=== PATIENT | female | born 1990 | race African-American/Black ===

== ENCOUNTER 2016-04-21 05:16 | Emergency (ER) | payer OTHER ==
[2016-04-21] MEDS ORDERED: METOCLOPRAMIDE INJ 10MG/2ML VIAL (J2765) As Ordered ONE (05:42)
[2016-04-21 05:53] LABS: BASO % 0.2 % (0.0-1.0); EOS # 0.1 K/mm3 (0.0-0.50); LARGE UNSTAINED CELL # 0.1 K/mm3 (0.0-0.4); LARGE UNSTAINED CELL % 1.3 % (0.0-4.0); LYMPH # 0.9 K/mm3 (1.5-6.5); LYMPH % 10.9 % (24.0-44.0); MEAN CORPUSCULAR HEMOGLOBIN 28.6 pg (27.0-33.0); MEAN CORPUSCULAR HGB CONC 33.9 g/dl (32.0-36.5); MEAN CORPUSCULAR VOLUME 84.5 fl (80.0-96.0); MONO # 0.4 K/mm3 (0.0-0.8); NEUTROPHILS # 6.7 K/mm3 (1.8-7.7); NEUTROPHILS % 81.6 % (36.0-66.0); PLATELET COUNT, AUTOMATED 246 k/mm3 (150-450); WHITE BLOOD COUNT 8.2 K/mm3 (4.0-10.0)
[2016-04-21 06:04] LABS: ALBUMIN 3.7 GM/DL (3.2-5.2); ALBUMIN/GLOBULIN RATIO 0.86 (1.00-1.93); ALKALINE PHOSPHATASE 49 U/L (45-117); ALT/SGPT 17 U/L (12-78); ANION GAP 10 MEQ/L (8-16); AST/SGOT 12 U/L (15-37); BILIRUBIN,DIRECT 0.1 MG/DL (0.0-0.2); BILIRUBIN,TOTAL 0.4 MG/DL (0.2-1.0); BLOOD UREA NITROGEN 6 MG/DL (7-18); CALCIUM LEVEL 9.1 MG/DL (8.5-10.1); CARBON DIOXIDE LEVEL 24 MEQ/L (21-32); CHLORIDE LEVEL 105 MEQ/L (98-107); CREATININE FOR GFR 0.78 MG/DL (0.55-1.02); GLOMERULAR FILTRATION RATE > 60.0 (>60); GLUCOSE, FASTING 74 MG/DL (70-105); POTASSIUM SERUM 3.6 MEQ/L (3.5-5.1); SODIUM LEVEL 139 MEQ/L (136-145)
[2016-04-21] MEDS ORDERED: ceFAZolin 1GM INJ (J0690) As Ordered ONE (06:14)
--- NOTE | 2016-04-21 08:23 | EDDOCDS ---
Nurse's Notes [facility] Name: Mariposa Browne Age: 25 yrs Sex: Female : 1990 Arrival Date: 04/21/2016 Time: 05:16 Bed 14 Private MD: Diagnosis: Mild hyperemesis gravidarum;Urinary tract infection, site not specified Presentation: 04/21 05:21 Presenting complaint: Patient states: nausea, vomiting x a couple days-- reports af2 feeling dizzy, lightheaded today, and intolerance of food and fluids. abdominal pain to LLQ. Adult Sepsis Screening: The patient does not have new or worsening altered mentation. Patient's respiratory rate is less than 22. Systolic blood pressure is greater than 100. Patient has a qSOFA score of 0- Negative Sepsis Screen. Suicide/Homicide risk assessment- the patient denies having any suicidal and/or homicidal ideations and does not present with any other emotional, behavioral or mental health complaints. Status: The patient is a dependent. Transition of care: patient was not received from another setting of care. 05:21 Acuity: STEVEN Level 3 af2 05:21 Method Of Arrival: Walkin/Carried/Asstd af2 Triage Assessment: 05:24 General: Appears in no apparent distress, Behavior is cooperative. Pain: Location: af2 abdomen Pain currently is 2 out of 10 on a pain scale. Pt Declines HIV testing. GI: Reports lower abdominal pain, nausea, vomiting, intolerance of food, intolerance of fluids. Derm: Skin is normal. 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 Tylenol 325 mg Oral tab 1 tab every 4-6 hours 2. Zantac 150 mg Oral cap Unknown once daily 3. Vitamin 27-0.8 mg Oral tab 1 tab once daily - PMHx: none; - PSHx: Cholecystectomy; - Social history: Smoking status: Patient states was never smoker of tobacco. No barriers to communication noted, The patient speaks fluent Yi. - Family history: Not pertinent. - : The pt / caregiver states he / she is not on anticoagulants. Home medication list is obtained from the patient. - Exposure Risk Screening:: None identified. Screenin:25 Screening information is obtained from the patient. Fall risk: No risks identified. af2 Assistance ADL's: requires no assistance with activities of daily living. Abuse/DV Screen: The patient / caregiver reports he/she is: not in a situation that causes fear, pain or injury. Nutritional screening: No deficits noted. Advance Directives: There is no active DNR order. home support is adequate. Assessment: 05:51 General: Appears in no apparent distress, Behavior is appropriate for age, cooperative. tm5 Pain: Location: right lower quadrant and left lower quadrant Pain currently is 2 out of 10 on a pain scale. Quality of pain is described as burning, crampy. Neurological: Level of Consciousness is awake, alert, Oriented to person, place, time. Respiratory: Airway is patent Respiratory effort is even, unlabored, Respiratory pattern is regular, symmetrical. GI: Abdomen is distended, pt is 4 months Bowel sounds present X 4 quads. Abd is soft and non tender X 4 quads. Reports nausea, vomiting, intolerance of food, intolerance of fluids. : No deficits noted. Derm: Skin is pink, warm & dry. normal. 06:25 Reassessment: Patient appears in no apparent distress at this time. Patient states tm5 feeling better. Patient states symptoms have improved. pt states that her nausea is better at this time, provided saltine crackers & ice water to pt per MD's okay. 07:06 General: Appears in no apparent distress, Behavior is appropriate for age, cooperative. pml Neurological: Level of Consciousness is awake, alert, Oriented to person, place, time. Cardiovascular: Capillary refill < 3 seconds. Respiratory: Airway is patent Respiratory effort is even, unlabored, Respiratory pattern is regular, symmetrical. Derm: Skin is pink, warm & dry. 08:18 General: Appears in no apparent distress, Behavior is appropriate for age, cooperative. pml Pain: Location: abdomen Pain currently is 2 out of 10 on a pain scale. Neurological: Level of Consciousness is awake, alert, Oriented to person, place, time. Cardiovascular: Capillary refill < 3 seconds. Respiratory: Airway is patent Respiratory effort is even, unlabored, Respiratory pattern is regular, symmetrical. GI: Abdomen is distended. Derm: Skin is pink, warm & dry. Vital Signs: 05:20 BP 138 / 75 RA Sitting; Pulse 103; Resp 18 S; Temp 98.3(O); Pulse Ox 100% on R/A; af2 Weight 92.53 kg (R); Height 5 ft. 5 in. (165.10 cm) (R); Pain 2/10; 06:26 BP 132 / 68; Pulse 77; Resp 18; Pulse Ox 99% on R/A; Pain 0/10; tm5 08:18 BP 111 / 67; Pulse 91; Resp 18; Temp 97.2; Pulse Ox 100% ; Pain 2/10; pml 05:20 Body Mass Index 33.95 (92.53 kg, 165.10 cm) af2 Vitals: 05:20 Log In Time: April 21, 2016 at 05:14. af2 ED Course: 05:17 Patient visited by Kailey Martinez. gjb 05:17 Patient moved to Waiting gjb 05:23 Triage Initiated af2 05:25 Patient moved to 14 af2 05:30 Jimbo Fragoso DO is Attending Physician. cs11 05:30 Patient visited by Jimbo Fragoso DO. cs11 05:40 Awaiting ED physician evaluation. tm5 05:40 Inserted saline lock: 20 gauge in right antecubital area and blood collected. The tm5 patient tolerated the procedure well. Labs drawn. (by ED staff). 05:41 Patient visited by Nubia Cotton RN. tm5 05:41 Liver Profile Sent. tm5 05:42 MED Profile Sent. tm5 05:42 CBC with Diff Sent. tm5 05:51 The patient / caregiver is instructed regarding the plan of care and ED course. tm5 06:24 Benitez Duke, OB is Referral Physician. cs11 06:58 Report given to Diamond Hester RN. tm5 07:08 Patient visited by Diamond Sharpe RN. pml 07:28 [facility] Payment Agreement was scanned into [employer] and attached to record. hs2 07:29 Patient name changed from Octiva\S\\S\Tarah Browne\S\ to [employer]\S\ \S\Tarah Browne. EDMS 08:18 Patient has correct armband on for positive identification. Placed in gown. Bed in low pml position. Call light in reach. Side rails up X2. 08:18 No procedures done that require assistance. pml Administered Medications: 05:50 Drug: NS 0.9% 2000 ml [sodium chloride 0.9 % intravenous solution] Route: IV; Rate: tm5 bolus; Site: right antecubital; 08:21 Follow up: IV Status: Completed infusion; IV Intake: 1000ml pml 05:51 Drug: Metoclopramide 10 mg [metoclopramide 5 mg/mL injection solution] {Note: given via tm5 syringe pump over 30 mins.} Route: IV; Rate: 40 mg/hr; Infused Over: 15 mins; Site: right antecubital; 06:24 Follow up: Response: Nausea is resolved; No Adverse Reaction; IV Status: Completed tm5 infusion 06:24 Drug: ceFAZolin 1 grams [cefazolin 1 gram solution for injection] Route: IVPB; Infused tm5 Over: 30 mins; Site: right antecubital; 08:21 Follow up: IV Status: Completed infusion pml Intake: 08:21 IV: 1000.00ml; Total: 1000.00ml. pml Order Results: Lab Order: CBC with Diff; SPEC'M 04/21/16 05:41 Test: WHITE BLOOD COUNT; Value: 8.2; Range: 4.0-10.0; Units: K/mm3; Status: F Test: RED BLOOD COUNT; Value: 4.28; Range: 4.00-5.40; Units: M/mm3; Status: F Test: HEMOGLOBIN; Value: 12.2; Range: 12.0-16.0; Units: g/dl; Status: F Test: HEMATOCRIT; Value: 36.1; Range: 36.0-47.0; Units: %; Status: F Test: MEAN CORPUSCULAR VOLUME; Value: 84.5; Range: 80.0-96.0; Units: fl; Status: F Test: MEAN CORPUSCULAR HEMOGLOBIN; Value: 28.6; Range: 27.0-33.0; Units: pg; Status: F Test: MEAN CORPUSCULAR HGB CONC; Value: 33.9; Range: 32.0-36.5; Units: g/dl; Status: F Test: RED CELL DISTRIBUTION WIDTH; Value: 13.0; Range: 11.5-14.5; Units: %; Status: F Test: PLATELET COUNT, AUTOMATED; Value: 246; Range: 150-450; Units: k/mm3; Status: F Test: NEUTROPHILS %; Value: 81.6; Range: 36.0-66.0; Abnormal: Above high normal; Units: %; Status: F Test: LYMPH %; Value: 10.9; Range: 24.0-44.0; Abnormal: Below low normal; Units: %; Status: F Test: MONO %; Value: 5.0; Range: 0.0-5.0; Units: %; Status: F Test: EOS %; Value: 1.0; Range: 0.0-3.0; Units: %; Status: F Test: BASO %; Value: 0.2; Range: 0.0-1.0; Units: %; Status: F Test: LARGE UNSTAINED CELL %; Value: 1.3; Range: 0.0-4.0; Units: %; Status: F Test: NEUTROPHILS #; Value: 6.7; Range: 1.8-7.7; Units: K/mm3; Status: F Test: LYMPH #; Value: 0.9; Range: 1.5-6.5; Abnormal: Below low normal; Units: K/mm3; Status: F Test: MONO #; Value: 0.4; Range: 0.0-0.8; Units: K/mm3; Status: F Test: EOS #; Value: 0.1; Range: 0.0-0.50; Units: K/mm3; Status: F Test: BASO #; Value: 0.0; Range: 0.0-0.2; Units: K/mm3; Status: F Test: LARGE UNSTAINED CELL #; Value: 0.1; Range: 0.0-0.4; Units: K/mm3; Status: F Lab Order: MED Profile; SPEC'M 04/21/16 05:40 Test: GLUCOSE, FASTING; Value: 74; Range: 70-105; Units: MG/DL; Status: F Test: BLOOD UREA NITROGEN; Value: 6; Range: 7-18; Abnormal: Below low normal; Units: MG/DL; Status: F Test: CREATININE FOR GFR; Value: 0.78; Range: 0.55-1.02; Units: MG/DL; Status: F Test: GLOMERULAR FILTRATION RATE; Value: > 60.0; Range: >60; Status: F Test: SODIUM LEVEL; Value: 139; Range: 136-145; Units: MEQ/L; Status: F Test: POTASSIUM SERUM; Value: 3.6; Range: 3.5-5.1; Units: MEQ/L; Status: F Test: CHLORIDE LEVEL; Value: 105; Range: 98-107; Units: MEQ/L; Status: F Test: CARBON DIOXIDE LEVEL; Value: 24; Range: 21-32; Units: MEQ/L; Status: F Test: ANION GAP; Value: 10; Range: 8-16; Units: MEQ/L; Status: F Test: CALCIUM LEVEL; Value: 9.1; Range: 8.5-10.1; Units: MG/DL; Status: F Test Note: ; Units are mL/min/1.73 m2 Chronic Kidney Disease Staging per NKF: Stage I & II GFR >=60 Normal to Mildly Decreased Stage III GFR 30-59 Moderately Decreased Stage IV GFR 15-29 Severely Decreased Stage V GFR <15 Very Little GFR Left ESRD GFR <15 on 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 Lab Order: Liver Profile; SPEC'M 04/21/16 05:40 Test: AST/SGOT; Value: 12; Range: 15-37; Abnormal: Below low normal; Units: U/L; Status: F Test: ALT/SGPT; Value: 17; Range: 12-78; Units: U/L; Status: F Test: ALKALINE PHOSPHATASE; Value: 49; Range: 45-117; Units: U/L; Status: F Test: BILIRUBIN,TOTAL; Value: 0.4; Range: 0.2-1.0; Units: MG/DL; Status: F Test: BILIRUBIN,DIRECT; Value: 0.1; Range: 0.0-0.2; Units: MG/DL; Status: F Test: TOTAL PROTEIN; Value: 8.0; Range: 6.4-8.2; Units: GM/DL; Status: F Test: ALBUMIN; Value: 3.7; Range: 3.2-5.2; Units: GM/DL; Status: F Test: ALBUMIN/GLOBULIN RATIO; Value: 0.86; Range: 1.00-1.93; Abnormal: Below low normal; Status: F Lab Order: Urinalysis; SPEC'M 04/21/16 05:30 Test: APPEARANCE, URINE; Value: CLOUDY; Range: CLEAR; Abnormal: Above high normal; Status: F Test: COLOR, URINE; Value: YELLOW; Range: YELLOW; Status: F Test: PH,URINE; Value: 5.0; Range: 5.0-9.0; Units: UNITS; Status: F Test: SPECIFIC GRAVITY URINE AUTO; Value: 1.018; Range: 1.002-1.035; Status: F Test: PROTEIN, URINE AUTO; Value: 2+; Range: NEGATIVE; Abnormal: Above high normal; Units: mg/dL; Status: F Test: GLUCOSE, URINE (UA) AUTO; Value: NEGATIVE; Range: NEGATIVE; Units: mg/dL; Status: F Test: KETONE, URINE AUTO; Value: 2+; Range: NEGATIVE; Abnormal: Above high normal; Units: mg/dL; Status: F Test: UROBILINOGEN, URINE AUTO; Value: 0.2; Range: 0.0-2.0; Units: mg/dL; Status: F Test: BILIRUBIN, URINE AUTO; Value: NEGATIVE; Range: NEGATIVE; Status: F Test: NITRITE, URINE AUTO; Value: NEGATIVE; Range: NEGATIVE; Status: F Test: LEUKOCYTE ESTERASE, URINE AUTO; Value: 3+; Range: NEGATIVE; Abnormal: Above high normal; Status: F Test: BLOOD, URINE BLOOD; Value: NEGATIVE; Range: NEGATIVE; Status: F Test: WBC, URINE AUTO; Value: 183; Range: 0-3; Units: /HPF; Status: F Test: RBC, URINE AUTO; Value: 9; Range: 0-3; Abnormal: Above high normal; Units: /HPF; Status: F Test: BACTERIA, URINE AUTO; Value: 1+; Range: NEGATIVE; Abnormal: Above high normal; Status: F Test: SQUAMOUS EPITHELIAL CELL UR AU; Value: 44; Range: 0-6; Units: /HPF; Status: F Test: MUCUS, URINE; Value: SMALL; Range: NEGATIVE; Status: F Test: HYALINE CAST, URINE AUTO; Value: 0; Range: 0-1; Units: /LPF; Status: F Outcome: 06:25 Discharge ordered by Provider. cs11 08:18 Discharge Assessment: Patient awake, alert and oriented x 3. No cognitive and/or pml functional deficits noted. Patient verbalized understanding of disposition instructions. patient administered narcotics - no. The following High Risk Discharge criteria are identified: None. Discharged to home ambulatory. Condition: good Condition: stable. Discharge instructions given to patient, Instructed on discharge instructions, follow up and referral plans. medication usage, Demonstrated understanding of instructions, medications, Pt was receptive of discharge instructions/ teaching. Prescriptions given X 2. No special radiology studies were completed. Property sent home with patient. 08:22 Patient left the ED. pml Signatures: Dispatcher [employer] EDDiamond BryanRN RN pml Jimbo Fragoso DO DO cs11 Gladis GarciaRN RN af2 Kailey [facility] Rachell Fuentes, Reg Reg hs2 Nubia Cotton RN RN tm5 MTDD
--- NOTE | 2016-04-21 08:23 | EDDOCDS ---
Physician Documentation [facility] Name: Mariposa Browne Age: 25 yrs Sex: Female : 1990 Arrival Date: 04/21/2016 Time: 05:16 Bed 14 Private MD: Disposition: 04/21/16 06:25 Discharged to Home/Self Care. Impression: Mild hyperemesis gravidarum, Urinary tract infection, site not specified. - Condition is Stable. - Prescriptions for Keflex 250 mg Oral Capsule - take 1 capsule by ORAL route every 8 hours for 10 days; 30 capsule. Reglan 10 mg Oral Tablet - take 1 tablet by ORAL route every 6 hours take 30 minutes before meals and at bedtime; 20 tablet. - Medication Reconciliation, Local Pharmacy Hours form. - Follow up: Benitez Duke OB; When: Call to arrange an appointment; Reason: Recheck today's complaints, Continuance of care. - Problem is an ongoing problem. - Symptoms have improved. Historical: - Allergies: No known drug Allergies; - Home Meds: 1. Tylenol 325 mg Oral tab 1 tab every 4-6 hours 2. Zantac 150 mg Oral cap Unknown once daily 3. Vitamin 27-0.8 mg Oral tab 1 tab once daily - PMHx: none; - PSHx: Cholecystectomy; - Social history: Smoking status: Patient states was never smoker of tobacco. No barriers to communication noted, The patient speaks fluent Malay. - Family history: Not pertinent. - : The pt / caregiver states he / she is not on anticoagulants. Home medication list is obtained from the patient. - Exposure Risk Screening:: None identified. 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 5 in. (165.10 cm) (R); Pain 2/10; 06:26 BP 132 / 68; Pulse 77; Resp 18; Pulse Ox 99% on R/A; Pain 0/10; tm5 08:18 BP 111 / 67; Pulse 91; Resp 18; Temp 97.2; Pulse Ox 100% ; Pain 2/10; pml 05:20 Body Mass Index 33.95 (92.53 kg, 165.10 cm) af2 MDM: 05:31 IV Saline Lock ordered. cs11 05:31 NS 0.9% 2000 ml IV at bolus once ordered. cs11 05:31 Metoclopramide 10 mg IV at 40 mg/hr once over 15 mins ordered. cs11 05:32 CBC with Diff Ordered. EDMS 05:32 MED Profile Ordered. EDMS 05:32 Liver Profile Ordered. EDMS 05:32 Urinalysis Ordered. EDMS 05:32 Urine Culture Ordered. EDMS 06:05 CBC with Diff Reviewed. cs11 06:05 Urinalysis Reviewed. cs11 06:07 ceFAZolin 1 grams IVPB once over 30 mins; dilute in 50mL of NS or D5W ordered. cs11 06:23 MED Profile Reviewed. cs11 06:23 Liver Profile Reviewed. cs11 07:23 Financial registration complete. hs2 07:28 [facility] Payment Agreement was scanned into [employer] and attached to record. hs2 Administered Medications: 05:50 Drug: NS 0.9% 2000 ml [sodium chloride 0.9 % intravenous solution] Route: IV; Rate: tm5 bolus; Site: right antecubital; 08:21 Follow up: IV Status: Completed infusion; IV Intake: 1000ml pml 05:51 Drug: Metoclopramide 10 mg [metoclopramide 5 mg/mL injection solution] {Note: given via tm5 syringe pump over 30 mins.} Route: IV; Rate: 40 mg/hr; Infused Over: 15 mins; Site: right antecubital; 06:24 Follow up: Response: Nausea is resolved; No Adverse Reaction; IV Status: Completed tm5 infusion 06:24 Drug: ceFAZolin 1 grams [cefazolin 1 gram solution for injection] Route: IVPB; Infused tm5 Over: 30 mins; Site: right antecubital; 08:21 Follow up: IV Status: Completed infusion pml Signatures: Dispatcher [employer] EDMS Diamond Sharpe RN RN pml Jimbo Fragoso DO DO cs11 Gladis Garcia RN RN af2 Rachell Fuentes, Reg Reg hs2 Nubia Cotton RN RN tm5 The chart was reviewed and I authenticate all verbal orders and agree with the evaluation and treatment provided.Attachments: 07:28 [facility] Payment Agreement hs2 MTDD
--- NOTE | 2016-04-23 09:23 | EDDOCDS ---
Physician Documentation [facility] Name: Mariposa Browne Age: 25 yrs Sex: Female : 1990 Arrival Date: 04/21/2016 Time: 05:16 Bed 14 Private MD: Disposition: 04/21/16 06:25 Discharged to Home/Self Care. Impression: Mild hyperemesis gravidarum, Urinary tract infection, site not specified. - Condition is Stable. - Prescriptions for Keflex 250 mg Oral Capsule - take 1 capsule by ORAL route every 8 hours for 10 days; 30 capsule. Reglan 10 mg Oral Tablet - take 1 tablet by ORAL route every 6 hours take 30 minutes before meals and at bedtime; 20 tablet. - Medication Reconciliation, Local Pharmacy Hours form. - Follow up: Benitez Duke OB; When: Call to arrange an appointment; Reason: Recheck today's complaints, Continuance of care. - Problem is an ongoing problem. - Symptoms have improved. Historical: - Allergies: No known drug Allergies; - Home Meds: 1. Tylenol 325 mg Oral tab 1 tab every 4-6 hours 2. Zantac 150 mg Oral cap Unknown once daily 3. Vitamin 27-0.8 mg Oral tab 1 tab once daily - PMHx: none; - PSHx: Cholecystectomy; - Social history: Smoking status: Patient states was never smoker of tobacco. No barriers to communication noted, The patient speaks fluent Malay. - Family history: Not pertinent. - : The pt / caregiver states he / she is not on anticoagulants. Home medication list is obtained from the patient. - Exposure Risk Screening:: None identified. 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 5 in. (165.10 cm) (R); Pain 2/10; 06:26 BP 132 / 68; Pulse 77; Resp 18; Pulse Ox 99% on R/A; Pain 0/10; tm5 08:18 BP 111 / 67; Pulse 91; Resp 18; Temp 97.2; Pulse Ox 100% ; Pain 2/10; pml 05:20 Body Mass Index 33.95 (92.53 kg, 165.10 cm) af2 MDM: 05:31 IV Saline Lock ordered. cs11 05:31 NS 0.9% 2000 ml IV at bolus once ordered. cs11 05:31 Metoclopramide 10 mg IV at 40 mg/hr once over 15 mins ordered. cs11 05:32 CBC with Diff Ordered. EDMS 05:32 MED Profile Ordered. EDMS 05:32 Liver Profile Ordered. EDMS 05:32 Urinalysis Ordered. EDMS 05:32 Urine Culture Ordered. EDMS 06:05 CBC with Diff Reviewed. cs11 06:05 Urinalysis Reviewed. cs11 06:07 ceFAZolin 1 grams IVPB once over 30 mins; dilute in 50mL of NS or D5W ordered. cs11 06:23 MED Profile Reviewed. cs11 06:23 Liver Profile Reviewed. cs11 07:23 Financial registration complete. hs2 07:28 [facility] Payment Agreement was scanned into [employer] and attached to record. hs2 08:55 T-Sheet-- Draft Copy was scanned into [employer] and attached to record. [facility] Administered Medications: 05:50 Drug: NS 0.9% 2000 ml [sodium chloride 0.9 % intravenous solution] Route: IV; Rate: tm5 bolus; Site: right antecubital; 08:21 Follow up: IV Status: Completed infusion; IV Intake: 1000ml pml 05:51 Drug: Metoclopramide 10 mg [metoclopramide 5 mg/mL injection solution] {Note: given via tm5 syringe pump over 30 mins.} Route: IV; Rate: 40 mg/hr; Infused Over: 15 mins; Site: right antecubital; 06:24 Follow up: Response: Nausea is resolved; No Adverse Reaction; IV Status: Completed tm5 infusion 06:24 Drug: ceFAZolin 1 grams [cefazolin 1 gram solution for injection] Route: IVPB; Infused tm5 Over: 30 mins; Site: right antecubital; 08:21 Follow up: IV Status: Completed infusion pml Signatures: Dispatcher [employer] EDMS Diamond Sharpe RN RN pml Jimbo Fragoso DO DO cs11 Gladis Garcia RN RN af2 Rachell Fuentes, Reg Reg hs2 Amita Hill Tonya,RN RN tm5 The chart was reviewed and I authenticate all verbal orders and agree with the evaluation and treatment provided.Attachments: 07:28 [facility] Payment Agreement hs2 08:55 T-Sheet-- Draft Copy mane Chart Complete MTDD
--- NOTE | 2016-04-23 09:23 | EDDOCDS ---
Physician Documentation [facility] Name: Mariposa Browne Age: 25 yrs Sex: Female : 1990 Arrival Date: 04/21/2016 Time: 05:16 Bed 14 Private MD: Disposition: 04/21/16 06:25 Discharged to Home/Self Care. Impression: Mild hyperemesis gravidarum, Urinary tract infection, site not specified. - Condition is Stable. - Prescriptions for Keflex 250 mg Oral Capsule - take 1 capsule by ORAL route every 8 hours for 10 days; 30 capsule. Reglan 10 mg Oral Tablet - take 1 tablet by ORAL route every 6 hours take 30 minutes before meals and at bedtime; 20 tablet. - Medication Reconciliation, Local Pharmacy Hours form. - Follow up: [facility]; When: Call to arrange an appointment; Reason: Recheck today's complaints, Continuance of care. - Problem is an ongoing problem. - Symptoms have improved. Historical: - Allergies: No known drug Allergies; - Home Meds: 1. Tylenol 325 mg Oral tab 1 tab every 4-6 hours 2. Zantac 150 mg Oral cap Unknown once daily 3. Vitamin 27-0.8 mg Oral tab 1 tab once daily - PMHx: none; - PSHx: Cholecystectomy; - Social history: Smoking status: Patient states was never smoker of tobacco. No barriers to communication noted, The patient speaks fluent Chinese. - Family history: Not pertinent. - : The pt / caregiver states he / she is not on anticoagulants. Home medication list is obtained from the patient. - Exposure Risk Screening:: None identified. 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 5 in. (165.10 cm) (R); Pain 2/10; 06:26 BP 132 / 68; Pulse 77; Resp 18; Pulse Ox 99% on R/A; Pain 0/10; tm5 08:18 BP 111 / 67; Pulse 91; Resp 18; Temp 97.2; Pulse Ox 100% ; Pain 2/10; pml 05:20 Body Mass Index 33.95 (92.53 kg, 165.10 cm) af2 MDM: 05:31 IV Saline Lock ordered. cs11 05:31 NS 0.9% 2000 ml IV at bolus once ordered. cs11 05:31 Metoclopramide 10 mg IV at 40 mg/hr once over 15 mins ordered. cs11 05:32 CBC with Diff Ordered. EDMS 05:32 MED Profile Ordered. EDMS 05:32 Liver Profile Ordered. EDMS 05:32 Urinalysis Ordered. EDMS 05:32 Urine Culture Ordered. EDMS 06:05 CBC with Diff Reviewed. cs11 06:05 Urinalysis Reviewed. cs11 06:07 ceFAZolin 1 grams IVPB once over 30 mins; dilute in 50mL of NS or D5W ordered. cs11 06:23 MED Profile Reviewed. cs11 06:23 Liver Profile Reviewed. cs11 07:23 Financial registration complete. hs2 07:28 [facility] Payment Agreement was scanned into VCV and attached to record. hs2 08:55 T-Sheet-- Draft Copy was scanned into VCV and attached to record. [facility] Administered Medications: 05:50 Drug: NS 0.9% 2000 ml [sodium chloride 0.9 % intravenous solution] Route: IV; Rate: tm5 bolus; Site: right antecubital; 08:21 Follow up: IV Status: Completed infusion; IV Intake: 1000ml pml 05:51 Drug: Metoclopramide 10 mg [metoclopramide 5 mg/mL injection solution] {Note: given via tm5 syringe pump over 30 mins.} Route: IV; Rate: 40 mg/hr; Infused Over: 15 mins; Site: right antecubital; 06:24 Follow up: Response: Nausea is resolved; No Adverse Reaction; IV Status: Completed tm5 infusion 06:24 Drug: ceFAZolin 1 grams [cefazolin 1 gram solution for injection] Route: IVPB; Infused tm5 Over: 30 mins; Site: right antecubital; 08:21 Follow up: IV Status: Completed infusion pml Signatures: Dispatcher MedHost EDMS Diamond Sharpe RN RN pml Jimbo Fragoso DO DO cs11 Gladis Garcia RN RN af2 Rachell Fuentes, Reg Reg hs2 Amita Hill Tonya,RN RN tm5 The chart was reviewed and I authenticate all verbal orders and agree with the evaluation and treatment provided.Attachments: 07:28 [facility] Payment Agreement hs2 08:55 T-Sheet-- Draft Copy mane Chart Complete MTDD
--- NOTE | 2016-04-23 09:23 | EDDOCDS ---
Nurse's Notes Name: Mariposa Browne Age: 25 yrs Sex: Female : 1990 Arrival Date: 04/21/2016 Time: 05:16 Bed 14 Private MD: Diagnosis: Mild hyperemesis gravidarum;Urinary tract infection, site not specified Presentation: 04/21 05:21 Presenting complaint: Patient states: nausea, vomiting x a couple days-- reports af2 feeling dizzy, lightheaded today, and intolerance of food and fluids. abdominal pain to LLQ. Adult Sepsis Screening: The patient does not have new or worsening altered mentation. Patient's respiratory rate is less than 22. Systolic blood pressure is greater than 100. Patient has a qSOFA score of 0- Negative Sepsis Screen. Suicide/Homicide risk assessment- the patient denies having any suicidal and/or homicidal ideations and does not present with any other emotional, behavioral or mental health complaints. Status: The patient is a dependent. Transition of care: patient was not received from another setting of care. 05:21 Acuity: STEVEN Level 3 af2 05:21 Method Of Arrival: Walkin/Carried/Asstd af2 Triage Assessment: 05:24 General: Appears in no apparent distress, Behavior is cooperative. Pain: Location: af2 abdomen Pain currently is 2 out of 10 on a pain scale. Pt Declines HIV testing. GI: Reports lower abdominal pain, nausea, vomiting, intolerance of food, intolerance of fluids. Derm: Skin is normal. 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 Tylenol 325 mg Oral tab 1 tab every 4-6 hours 2. Zantac 150 mg Oral cap Unknown once daily 3. Vitamin 27-0.8 mg Oral tab 1 tab once daily - PMHx: none; - PSHx: Cholecystectomy; - Social history: Smoking status: Patient states was never smoker of tobacco. No barriers to communication noted, The patient speaks fluent Wolof. - Family history: Not pertinent. - : The pt / caregiver states he / she is not on anticoagulants. Home medication list is obtained from the patient. - Exposure Risk Screening:: None identified. Screenin:25 Screening information is obtained from the patient. Fall risk: No risks identified. af2 Assistance ADL's: requires no assistance with activities of daily living. Abuse/DV Screen: The patient / caregiver reports he/she is: not in a situation that causes fear, pain or injury. Nutritional screening: No deficits noted. Advance Directives: There is no active DNR order. home support is adequate. Assessment: 05:51 General: Appears in no apparent distress, Behavior is appropriate for age, cooperative. tm5 Pain: Location: right lower quadrant and left lower quadrant Pain currently is 2 out of 10 on a pain scale. Quality of pain is described as burning, crampy. Neurological: Level of Consciousness is awake, alert, Oriented to person, place, time. Respiratory: Airway is patent Respiratory effort is even, unlabored, Respiratory pattern is regular, symmetrical. GI: Abdomen is distended, pt is 4 months Bowel sounds present X 4 quads. Abd is soft and non tender X 4 quads. Reports nausea, vomiting, intolerance of food, intolerance of fluids. : No deficits noted. Derm: Skin is pink, warm & dry. normal. 06:25 Reassessment: Patient appears in no apparent distress at this time. Patient states tm5 feeling better. Patient states symptoms have improved. pt states that her nausea is better at this time, provided saltine crackers & ice water to pt per MD's okay. 07:06 General: Appears in no apparent distress, Behavior is appropriate for age, cooperative. pml Neurological: Level of Consciousness is awake, alert, Oriented to person, place, time. Cardiovascular: Capillary refill < 3 seconds. Respiratory: Airway is patent Respiratory effort is even, unlabored, Respiratory pattern is regular, symmetrical. Derm: Skin is pink, warm & dry. 08:18 General: Appears in no apparent distress, Behavior is appropriate for age, cooperative. pml Pain: Location: abdomen Pain currently is 2 out of 10 on a pain scale. Neurological: Level of Consciousness is awake, alert, Oriented to person, place, time. Cardiovascular: Capillary refill < 3 seconds. Respiratory: Airway is patent Respiratory effort is even, unlabored, Respiratory pattern is regular, symmetrical. GI: Abdomen is distended. Derm: Skin is pink, warm & dry. Vital Signs: 05:20 BP 138 / 75 RA Sitting; Pulse 103; Resp 18 S; Temp 98.3(O); Pulse Ox 100% on R/A; af2 Weight 92.53 kg (R); Height 5 ft. 5 in. (165.10 cm) (R); Pain 2/10; 06:26 BP 132 / 68; Pulse 77; Resp 18; Pulse Ox 99% on R/A; Pain 0/10; tm5 08:18 BP 111 / 67; Pulse 91; Resp 18; Temp 97.2; Pulse Ox 100% ; Pain 2/10; pml 05:20 Body Mass Index 33.95 (92.53 kg, 165.10 cm) af2 Vitals: 05:20 Log In Time: April 21, 2016 at 05:14. af2 ED Course: 05:17 Patient visited by Kailey Martinez. gjb 05:17 Patient moved to Waiting gjb 05:23 Triage Initiated af2 05:25 Patient moved to 14 af2 05:30 Jimbo Fragoso DO is Attending Physician. cs11 05:30 Patient visited by Jimbo Fragoso DO. cs11 05:40 Awaiting ED physician evaluation. tm5 05:40 Inserted saline lock: 20 gauge in right antecubital area and blood collected. The tm5 patient tolerated the procedure well. Labs drawn. (by ED staff). 05:41 Patient visited by Nubia Cotton RN. tm5 05:41 Liver Profile Sent. tm5 05:42 MED Profile Sent. tm5 05:42 CBC with Diff Sent. tm5 05:51 The patient / caregiver is instructed regarding the plan of care and ED course. tm5 06:24 [facility], OB is Referral Physician. cs11 06:58 Report given to Diamond Hester RN. tm5 07:08 Patient visited by Diamond Sharpe RN. pml 07:28 [facility] Payment Agreement was scanned into cinvolve and attached to record. hs2 07:29 Patient name changed from Octiva\S\\S\Tarah Browne\S\ to Octiva\S\ \S\Tarah Browne. EDMS 08:18 Patient has correct armband on for positive identification. Placed in gown. Bed in low pml position. Call light in reach. Side rails up X2. 08:18 No procedures done that require assistance. pml 08:55 T-Sheet-- Draft Copy was scanned into cinvolve and attached to record. seh Administered Medications: 05:50 Drug: NS 0.9% 2000 ml [sodium chloride 0.9 % intravenous solution] Route: IV; Rate: tm5 bolus; Site: right antecubital; 08:21 Follow up: IV Status: Completed infusion; IV Intake: 1000ml pml 05:51 Drug: Metoclopramide 10 mg [metoclopramide 5 mg/mL injection solution] {Note: given via tm5 syringe pump over 30 mins.} Route: IV; Rate: 40 mg/hr; Infused Over: 15 mins; Site: right antecubital; 06:24 Follow up: Response: Nausea is resolved; No Adverse Reaction; IV Status: Completed tm5 infusion 06:24 Drug: ceFAZolin 1 grams [cefazolin 1 gram solution for injection] Route: IVPB; Infused tm5 Over: 30 mins; Site: right antecubital; 08:21 Follow up: IV Status: Completed infusion pml Intake: 08:21 IV: 1000.00ml; Total: 1000.00ml. pml Order Results: Lab Order: CBC with Diff; SPEC'M 04/21/16 05:41 Test: WHITE BLOOD COUNT; Value: 8.2; Range: 4.0-10.0; Units: K/mm3; Status: F Test: RED BLOOD COUNT; Value: 4.28; Range: 4.00-5.40; Units: M/mm3; Status: F Test: HEMOGLOBIN; Value: 12.2; Range: 12.0-16.0; Units: g/dl; Status: F Test: HEMATOCRIT; Value: 36.1; Range: 36.0-47.0; Units: %; Status: F Test: MEAN CORPUSCULAR VOLUME; Value: 84.5; Range: 80.0-96.0; Units: fl; Status: F Test: MEAN CORPUSCULAR HEMOGLOBIN; Value: 28.6; Range: 27.0-33.0; Units: pg; Status: F Test: MEAN CORPUSCULAR HGB CONC; Value: 33.9; Range: 32.0-36.5; Units: g/dl; Status: F Test: RED CELL DISTRIBUTION WIDTH; Value: 13.0; Range: 11.5-14.5; Units: %; Status: F Test: PLATELET COUNT, AUTOMATED; Value: 246; Range: 150-450; Units: k/mm3; Status: F Test: NEUTROPHILS %; Value: 81.6; Range: 36.0-66.0; Abnormal: Above high normal; Units: %; Status: F Test: LYMPH %; Value: 10.9; Range: 24.0-44.0; Abnormal: Below low normal; Units: %; Status: F Test: MONO %; Value: 5.0; Range: 0.0-5.0; Units: %; Status: F Test: EOS %; Value: 1.0; Range: 0.0-3.0; Units: %; Status: F Test: BASO %; Value: 0.2; Range: 0.0-1.0; Units: %; Status: F Test: LARGE UNSTAINED CELL %; Value: 1.3; Range: 0.0-4.0; Units: %; Status: F Test: NEUTROPHILS #; Value: 6.7; Range: 1.8-7.7; Units: K/mm3; Status: F Test: LYMPH #; Value: 0.9; Range: 1.5-6.5; Abnormal: Below low normal; Units: K/mm3; Status: F Test: MONO #; Value: 0.4; Range: 0.0-0.8; Units: K/mm3; Status: F Test: EOS #; Value: 0.1; Range: 0.0-0.50; Units: K/mm3; Status: F Test: BASO #; Value: 0.0; Range: 0.0-0.2; Units: K/mm3; Status: F Test: LARGE UNSTAINED CELL #; Value: 0.1; Range: 0.0-0.4; Units: K/mm3; Status: F Lab Order: MED Profile; SPEC'M 04/21/16 05:40 Test: GLUCOSE, FASTING; Value: 74; Range: 70-105; Units: MG/DL; Status: F Test: BLOOD UREA NITROGEN; Value: 6; Range: 7-18; Abnormal: Below low normal; Units: MG/DL; Status: F Test: CREATININE FOR GFR; Value: 0.78; Range: 0.55-1.02; Units: MG/DL; Status: F Test: GLOMERULAR FILTRATION RATE; Value: > 60.0; Range: >60; Status: F Test: SODIUM LEVEL; Value: 139; Range: 136-145; Units: MEQ/L; Status: F Test: POTASSIUM SERUM; Value: 3.6; Range: 3.5-5.1; Units: MEQ/L; Status: F Test: CHLORIDE LEVEL; Value: 105; Range: 98-107; Units: MEQ/L; Status: F Test: CARBON DIOXIDE LEVEL; Value: 24; Range: 21-32; Units: MEQ/L; Status: F Test: ANION GAP; Value: 10; Range: 8-16; Units: MEQ/L; Status: F Test: CALCIUM LEVEL; Value: 9.1; Range: 8.5-10.1; Units: MG/DL; Status: F Test Note: ; Units are mL/min/1.73 m2 Chronic Kidney Disease Staging per NKF: Stage I & II GFR >=60 Normal to Mildly Decreased Stage III GFR 30-59 Moderately Decreased Stage IV GFR 15-29 Severely Decreased Stage V GFR <15 Very Little GFR Left ESRD GFR <15 on HEALTH INFORMATICS ADVISOR Lab Order: Liver Profile; SPEC'M 04/21/16 05:40 Test: AST/SGOT; Value: 12; Range: 15-37; Abnormal: Below low normal; Units: U/L; Status: F Test: ALT/SGPT; Value: 17; Range: 12-78; Units: U/L; Status: F Test: ALKALINE PHOSPHATASE; Value: 49; Range: 45-117; Units: U/L; Status: F Test: BILIRUBIN,TOTAL; Value: 0.4; Range: 0.2-1.0; Units: MG/DL; Status: F Test: BILIRUBIN,DIRECT; Value: 0.1; Range: 0.0-0.2; Units: MG/DL; Status: F Test: TOTAL PROTEIN; Value: 8.0; Range: 6.4-8.2; Units: GM/DL; Status: F Test: ALBUMIN; Value: 3.7; Range: 3.2-5.2; Units: GM/DL; Status: F Test: ALBUMIN/GLOBULIN RATIO; Value: 0.86; Range: 1.00-1.93; Abnormal: Below low normal; Status: F Lab Order: Urinalysis; SPEC'M 04/21/16 05:30 Test: APPEARANCE, URINE; Value: CLOUDY; Range: CLEAR; Abnormal: Above high normal; Status: F Test: COLOR, URINE; Value: YELLOW; Range: YELLOW; Status: F Test: PH,URINE; Value: 5.0; Range: 5.0-9.0; Units: UNITS; Status: F Test: SPECIFIC GRAVITY URINE AUTO; Value: 1.018; Range: 1.002-1.035; Status: F Test: PROTEIN, URINE AUTO; Value: 2+; Range: NEGATIVE; Abnormal: Above high normal; Units: mg/dL; Status: F Test: GLUCOSE, URINE (UA) AUTO; Value: NEGATIVE; Range: NEGATIVE; Units: mg/dL; Status: F Test: KETONE, URINE AUTO; Value: 2+; Range: NEGATIVE; Abnormal: Above high normal; Units: mg/dL; Status: F Test: UROBILINOGEN, URINE AUTO; Value: 0.2; Range: 0.0-2.0; Units: mg/dL; Status: F Test: BILIRUBIN, URINE AUTO; Value: NEGATIVE; Range: NEGATIVE; Status: F Test: NITRITE, URINE AUTO; Value: NEGATIVE; Range: NEGATIVE; Status: F Test: LEUKOCYTE ESTERASE, URINE AUTO; Value: 3+; Range: NEGATIVE; Abnormal: Above high normal; Status: F Test: BLOOD, URINE BLOOD; Value: NEGATIVE; Range: NEGATIVE; Status: F Test: WBC, URINE AUTO; Value: 183; Range: 0-3; Units: /HPF; Status: F Test: RBC, URINE AUTO; Value: 9; Range: 0-3; Abnormal: Above high normal; Units: /HPF; Status: F Test: BACTERIA, URINE AUTO; Value: 1+; Range: NEGATIVE; Abnormal: Above high normal; Status: F Test: SQUAMOUS EPITHELIAL CELL UR AU; Value: 44; Range: 0-6; Units: /HPF; Status: F Test: MUCUS, URINE; Value: SMALL; Range: NEGATIVE; Status: F Test: HYALINE CAST, URINE AUTO; Value: 0; Range: 0-1; Units: /LPF; Status: F Lab Order: Urine Culture; SPEC'M 04/21/16 05:30 Test: URINE CULTURE; Value: URINE CULTURE RESULT SPECIMEN APPEARS CONTAMINATED; Status: F Outcome: 06:25 Discharge ordered by Provider. cs11 08:18 Discharge Assessment: Patient awake, alert and oriented x 3. No cognitive and/or pml functional deficits noted. Patient verbalized understanding of disposition instructions. patient administered narcotics - no. The following High Risk Discharge criteria are identified: None. Discharged to home ambulatory. Condition: good Condition: stable. Discharge instructions given to patient, Instructed on discharge instructions, follow up and referral plans. medication usage, Demonstrated understanding of instructions, medications, Pt was receptive of discharge instructions/ teaching. Prescriptions given X 2. No special radiology studies were completed. Property sent home with patient. 08:22 Patient left the ED. pml Signatures: Dispatcher MedHost EDMS Diamond Sharpe,RN RN pml Jimbo Fragoso, DO cs11 Gladis GarciaRN RN af2 Kailey Martinez Hillary, Reg Reg hs2 Liz, Nubia Lopez,RN RN tm5 Chart Complete [facility]
== END 2016-04-21 08:22 | disposition home or self-care (01) ==
LOC: M ED 05:16
DX: O21.0 Mild hyperemesis gravidarum (principal); O23.42 Unspecified infection of urinary tract in pregnancy, second trimester; Z3A.19 19 weeks gestation of pregnancy; Z79.899 Other long term (current) drug therapy
CPT/HCPCS: 36415; 80048; 80076; 81001; 85025; 87086; 96365; 96367; 99284; J0690; J2765

== ENCOUNTER 2016-04-23 07:15 | Emergency (ER) | payer OTHER ==
[2016-04-23] MEDS ORDERED: METOCLOPRAMIDE INJ 10MG/2ML VIAL (J2765) As Ordered ONE (07:58)
[2016-04-23 08:15] LABS: BASO % 0.5 % (0.0-1.0); EOS % 0.1 % (0.0-3.0); LARGE UNSTAINED CELL # 0.1 K/mm3 (0.0-0.4); LYMPH # 0.8 K/mm3 (1.5-6.5); LYMPH % 6.8 % (24.0-44.0); MEAN CORPUSCULAR HEMOGLOBIN 28.6 pg (27.0-33.0); MEAN CORPUSCULAR HGB CONC 33.4 g/dl (32.0-36.5); MEAN CORPUSCULAR VOLUME 85.8 fl (80.0-96.0); MONO # 0.2 K/mm3 (0.0-0.8); MONO % 2.4 % (0.0-5.0); NEUTROPHILS % 89.1 % (36.0-66.0); PLATELET COUNT, AUTOMATED 257 k/mm3 (150-450)
[2016-04-23 08:20] LABS: ANION GAP 12 MEQ/L (8-16); BLOOD UREA NITROGEN 6 MG/DL (7-18); CALCIUM LEVEL 9.2 MG/DL (8.5-10.1); CARBON DIOXIDE LEVEL 22 MEQ/L (21-32); CHLORIDE LEVEL 108 MEQ/L (98-107); CREATININE FOR GFR 0.82 MG/DL (0.55-1.02); GLOMERULAR FILTRATION RATE > 60.0 (>60); GLUCOSE, FASTING 83 MG/DL (70-105); POTASSIUM SERUM 3.6 MEQ/L (3.5-5.1); SODIUM LEVEL 142 MEQ/L (136-145)
[2016-04-23] MEDS ORDERED: PANTOPRAZOLE 40MG INJ (PROTONIX) (C9113) As Ordered ONE (09:11)
--- NOTE | 2016-04-23 10:28 | EDDOCDS ---
Physician Documentation [facility] Name: Mariposa Browne Age: 25 yrs Sex: Female : 1990 Arrival Date: 04/23/2016 Time: 07:15 Bed I5 / M5 Private MD: Disposition: 04/23/16 10:20 Discharged to Home/Self Care. Impression: Gastro-esophageal reflux disease without esophagitis, Nausea and vomiting, state - second trimester. - Condition is Stable. - Discharge Instructions: Hyperemesis Gravidarum, Heartburn During , Second Trimester of , Bpvd-cm-Aomx. - Prescriptions for Protonix 40 mg Oral Tablet - take 1 tablet by ORAL route once daily; 30 tablet. Diclegis 10- 10 mg Oral - take 2 tablet by ORAL route as directed take 2 tablests at night and 1 in the morning for nausea; 30 tablet. - Medication Reconciliation, Local Pharmacy Hours, Family Work Release, Work Release Form - 1 day form. - Follow up: [place], [facility]; When: Call to arrange an appointment; Reason: Recheck today's complaints, Continuance of care. - Problem is new. - Symptoms have improved. - Notes: call concession worker office for follow up appointment. Historical: - Allergies: no known allergies; - Home Meds: 1. Vitamin 27-0.8 mg Oral tab 1 tab once daily (Last dose: 04/19/2016) 2. Tylenol 325 mg Oral tab 1 tab every 4-6 hours (Last dose: 04/19/2016) 3. Zantac 150 mg Oral cap Unknown once daily (Last dose: 04/19/2016) - PMHx: GERD; - PSHx: Cholecystectomy; - Social history: Smoking status: Patient states was never smoker of tobacco. No barriers to communication noted, The patient speaks fluent Uzbek. - Family history: Not pertinent. - : The pt / caregiver states he / she is not on anticoagulants. Home medication list is obtained from the patient. - Exposure Risk Screening:: None identified. BORDER INSPECTOR: 04/23 07:25 Unsure when LMP dwg Vital Signs: 07:25 BP 136 / 79; Pulse 102; Resp 20; Temp 98.1(T); Pulse Ox 99% on R/A; Weight 92.53 kg / dwg 203.99 lbs; Height 5 ft. 6 in. (167.64 cm); Pain 0/10; 10:20 BP 116 / 68; Pulse 107; Resp 18; Temp 98.2; Pulse Ox 100% ; Pain 0/10; jam1 07:25 Body Mass Index 32.93 (92.53 kg, 167.64 cm) dwg MDM: 07:39 IV Saline Lock ordered. ar2 07:39 NS 0.9% 1000 ml IV at bolus once ordered. ar2 07:39 Metoclopramide 10 mg IV at 40 mg/hr once over 15 mins ordered. ar2 07:39 Undress patient appropriately for examination ordered. ar2 07:39 Heart Tones ordered. ar2 07:39 CBC with Diff Ordered. EDMS 07:39 MED Profile Ordered. EDMS 07:39 UA Ordered. EDMS 07:52 Fluid Challenge ordered. ar2 08:05 Financial registration complete. lg 08:05 [facility] Payment Agreement was scanned into Pens[employer] and attached to record. lg 08:57 CBC with Diff Reviewed. ar2 08:57 MED Profile Reviewed. ar2 08:57 UA Reviewed. ar2 08:58 NS 0.9% 500 ml IV at bolus once ordered. ar2 09:04 Famotidine 20 mg PO once ordered. ar2 09:09 pantoprazole 40 mg IV at bolus once ordered. ar2 09:19 Urine Culture Ordered. EDMS Administered Medications: 08:08 Drug: Metoclopramide 10 mg [metoclopramide 5 mg/mL injection solution] Route: IV; Rate: kcs 40 mg/hr; Infused Over: 15 mins; Site: right antecubital; 10:02 Follow up: IV Status: Completed infusion; IV Intake: 50ml kcs 08:25 Drug: NS 0.9% 1000 ml [sodium chloride 0.9 % intravenous solution] Route: IV; Rate: kcs bolus; Site: right antecubital; 10:02 Follow up: IV Status: Completed infusion; IV Intake: 1000ml kcs 09:07 Not Given (Duplicate Order): Famotidine 20 mg PO once ar2 09:15 Drug: pantoprazole 40 mg [pantoprazole 40 mg intravenous solution] Route: IV; Rate: dsf bolus; Site: right antecubital; 10:27 Follow up: IV Status: Completed infusion; IV Intake: 10ml dsf 09:25 Drug: NS 0.9% 500 ml [sodium chloride 0.9 % intravenous solution] Route: IV; Rate: kcs bolus; Site: right antecubital; 10:02 Follow up: IV Status: Completed infusion; IV Intake: 500ml kcs Signatures: Dispatcher MedHost Gen Corcoran RN RN Deandre Butler, Reg Reg lg Juvenal Ellis, JARROD PAArlene ar2 Elis Mendiola RN RN dsf Sleeman, Kacey RN kcs The chart was reviewed and I authenticate all verbal orders and agree with the evaluation and treatment provided.Attachments: 08:05 [facility] Payment Agreement lg MTDD
--- NOTE | 2016-04-23 10:28 | EDDOCDS ---
Nurse's Notes [facility] Name: Mariposa Browne Age: 25 yrs Sex: Female : 1990 Arrival Date: 04/23/2016 Time: 07:15 Bed I5 / M5 Private MD: Diagnosis: Gastro-esophageal reflux disease without esophagitis;Nausea and vomiting; state-second trimester Presentation: 04/23 07:20 Presenting complaint: Patient states: Vomiting for 4 days, states 20 weeks , dwg seen here Friday, diagnosed with UTI, has not started antibiotic yet, denies back or pelvic pain. Adult Sepsis Screening: The patient does not have new or worsening altered mentation. Patient's respiratory rate is less than 22. Systolic blood pressure is greater than 100. Patient has a qSOFA score of 0- Negative Sepsis Screen. Suicide/Homicide risk assessment- the patient denies having any suicidal and/or homicidal ideations and does not present with any other emotional, behavioral or mental health complaints. Status: The patient is a dependent. Transition of care: patient was not received from another setting of care. 07:20 Acuity: STEVEN Level 3 [facility] 07:20 Method Of Arrival: Walkin/Carried/Asstd dwg Triage Assessment: 07:25 General: Appears in no apparent distress. Pain: Denies pain. HIV screening NA for this dwg visit Offered previously. 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 Vitamin 27-0.8 mg Oral tab 1 tab once daily (Last dose: 04/19/2016) 2. Tylenol 325 mg Oral tab 1 tab every 4-6 hours (Last dose: 04/19/2016) 3. Zantac 150 mg Oral cap Unknown once daily (Last dose: 04/19/2016) - PMHx: GERD; - PSHx: Cholecystectomy; - Social history: Smoking status: Patient states was never smoker of tobacco. No barriers to communication noted, The patient speaks fluent Yoruba. - Family history: Not pertinent. - : The pt / caregiver states he / she is not on anticoagulants. Home medication list is obtained from the patient. - Exposure Risk Screening:: None identified. Screenin:12 Screening information is obtained from the patient. Primary language is Yoruba. Fall jam1 risk: No risks identified. Assistance ADL's: requires no assistance with activities of daily living. Abuse/DV Screen: The patient / caregiver reports he/she is: not in a situation that causes fear, pain or injury. Nutritional screening: No deficits noted. Exposure Risk Screening: None identified. Advance Directives: Currently, there is no health care proxy. There is no active DNR order. There is no living will. There is no Power of Grades 9 Through 12 Teacher. Advance directive information has not previously been placed in an [facility] medical record. Further advance directive information is declined. home support is adequate. Assessment: 08:32 Reassessment: patient shaking - warm blankets applied. While hanging IV - patient noted kcs to be snoring. Has been taking sips of water and retaining. at bedside.. General: Appears ill, well developed, well nourished, well groomed, Behavior is cooperative, quiet. Pain: Denies pain. Neurological: Level of Consciousness is awake, alert. Respiratory: Airway is patent Respiratory effort is even, unlabored, Respiratory pattern is regular, symmetrical. GI: Abdomen is obese, Bowel sounds diminished in right upper quadrant, left upper quadrant, right lower quadrant and left lower quadrant Abd is soft X 4 quads Reports nausea, vomiting. Derm: Skin is intact, is healthy with good turgor, Skin is dry, Skin is black. 09:15 Adult Sepsis Screening: The patient does not have new or worsening altered mentation. dsf Patient's respiratory rate is less than 22. Systolic blood pressure is greater than 100. Patient has a qSOFA score of 0- Negative Sepsis Screen. General: Appears ill, Behavior is cooperative. Pain: Denies pain. Neurological: Level of Consciousness is awake, alert, Oriented to person, place, time. Cardiovascular: Capillary refill < 3 seconds. Respiratory: Airway is patent Respiratory effort is even, unlabored, Respiratory pattern is regular, symmetrical. GI: Reports indigestion. Derm: Skin is dry, Skin is black, Skin temperature is warm. 09:39 Reassessment: patient sipping on apple juice - states heartburn is better. IV infusing..kcs 10:26 Adult Sepsis Screening: The patient does not have new or worsening altered mentation. dsf Patient's respiratory rate is less than 22. Systolic blood pressure is greater than 100. Patient has a qSOFA score of 0- Negative Sepsis Screen. General: Appears ill, Behavior is appropriate for age, cooperative. Pain: Denies pain. Neurological: Level of Consciousness is awake, alert. Cardiovascular: Capillary refill < 3 seconds. Respiratory: Airway is patent Respiratory effort is even, unlabored, Respiratory pattern is regular, symmetrical. Derm: Skin is dry, Skin is black, Skin temperature is warm. Vital Signs: 07:25 BP 136 / 79; Pulse 102; Resp 20; Temp 98.1(T); Pulse Ox 99% on R/A; Weight 92.53 kg; dwg Height 5 ft. 6 in. (167.64 cm); Pain 0/10; 10:20 BP 116 / 68; Pulse 107; Resp 18; Temp 98.2; Pulse Ox 100% ; Pain 0/10; jam1 07:25 Body Mass Index 32.93 (92.53 kg, 167.64 cm) dwg Vitals: 07:25 Log In Time: April 23, 2016 at 07:15. dwg 08:35 Heart Tones 193BPM. kcs ED Course: 07:17 Patient visited by Tl Almanza, Reg. pm4 07:17 Patient moved to Waiting pm4 07:24 Triage Initiated dwg 07:27 Patient moved to I5 / M5 dwg 07:37 [facility] ar2 07:37 Elijah So MD is Attending Physician. ar2 07:47 Patient visited by Juvenal Ellis PA-C. ar2 07:50 Inserted saline lock: 20 gauge in right antecubital area The patient tolerated the kcs procedure well. 07:56 CBC with Diff Sent. kcs 07:56 MED Profile Sent. kcs 07:57 UA Sent. kcs 08:04 Patient name changed from Octiva\S\\S\Tarah Browne\S\ to Octiva\S\ \S\Tarah Browne. EDMS 08:05 [facility] Payment Agreement was scanned into [email or web address] and attached to record. lg 09:12 Pt greeted and oriented to ED. Patient advised of names of staff involved in care, jam1 location of call vasques, wait times and NPO status. Patient has correct armband on for positive identification. Placed in gown. Bed in low position. Call light in reach. Side rails up X 1. Adult w/ patient. Door closed. 09:16 Patient visited by Elis Mendiola RN. dsf 10:16 Benitez Duke, OB is Referral Physician. ar2 10:26 The patient / caregiver is instructed regarding the plan of care and ED course. dsf 10:26 Discontinued lock intact, bleeding controlled, pressure dressing applied, No kcs redness/swelling at site. 10:26 No procedures done that require assistance. dsf Administered Medications: 08:08 Drug: Metoclopramide 10 mg [metoclopramide 5 mg/mL injection solution] Route: IV; Rate: kcs 40 mg/hr; Infused Over: 15 mins; Site: right antecubital; 10:02 Follow up: IV Status: Completed infusion; IV Intake: 50ml kcs 08:25 Drug: NS 0.9% 1000 ml [sodium chloride 0.9 % intravenous solution] Route: IV; Rate: kcs bolus; Site: right antecubital; 10:02 Follow up: IV Status: Completed infusion; IV Intake: 1000ml kcs 09:07 Not Given (Duplicate Order): Famotidine 20 mg PO once ar2 09:15 Drug: pantoprazole 40 mg [pantoprazole 40 mg intravenous solution] Route: IV; Rate: dsf bolus; Site: right antecubital; 10:27 Follow up: IV Status: Completed infusion; IV Intake: 10ml dsf 09:25 Drug: NS 0.9% 500 ml [sodium chloride 0.9 % intravenous solution] Route: IV; Rate: kcs bolus; Site: right antecubital; 10:02 Follow up: IV Status: Completed infusion; IV Intake: 500ml kcs Intake: 10:02 IV: 500.00ml; Total: 500.00ml. kcs 10:02 IV: 1000.00ml; Total: 1500.00ml. kcs 10:02 IV: 50.00ml; Total: 1550.00ml. kcs 10:27 IV: 10.00ml; Total: 1560.00ml. dsf Order Results: Lab Order: CBC with Diff; SPEC'M 04/23/16 07:54 Test: WHITE BLOOD COUNT; Value: 10.0; Range: 4.0-10.0; Units: K/mm3; Status: F Test: RED BLOOD COUNT; Value: 4.26; Range: 4.00-5.40; Units: M/mm3; Status: F Test: HEMOGLOBIN; Value: 12.2; Range: 12.0-16.0; Units: g/dl; Status: F Test: HEMATOCRIT; Value: 36.5; Range: 36.0-47.0; Units: %; Status: F Test: MEAN CORPUSCULAR VOLUME; Value: 85.8; Range: 80.0-96.0; Units: fl; Status: F Test: MEAN CORPUSCULAR HEMOGLOBIN; Value: 28.6; Range: 27.0-33.0; Units: pg; Status: F Test: MEAN CORPUSCULAR HGB CONC; Value: 33.4; Range: 32.0-36.5; Units: g/dl; Status: F Test: RED CELL DISTRIBUTION WIDTH; Value: 14.0; Range: 11.5-14.5; Units: %; Status: F Test: PLATELET COUNT, AUTOMATED; Value: 257; Range: 150-450; Units: k/mm3; Status: F Test: NEUTROPHILS %; Value: 89.1; Range: 36.0-66.0; Abnormal: Above high normal; Units: %; Status: F Test: LYMPH %; Value: 6.8; Range: 24.0-44.0; Abnormal: Below low normal; Units: %; Status: F Test: MONO %; Value: 2.4; Range: 0.0-5.0; Units: %; Status: F Test: EOS %; Value: 0.1; Range: 0.0-3.0; Units: %; Status: F Test: BASO %; Value: 0.5; Range: 0.0-1.0; Units: %; Status: F Test: LARGE UNSTAINED CELL %; Value: 1.0; Range: 0.0-4.0; Units: %; Status: F Test: NEUTROPHILS #; Value: 9.0; Range: 1.8-7.7; Abnormal: Above high normal; Units: K/mm3; Status: F Test: LYMPH #; Value: 0.8; Range: 1.5-6.5; Abnormal: Below low normal; Units: K/mm3; Status: F Test: MONO #; Value: 0.2; Range: 0.0-0.8; Units: K/mm3; Status: F Test: EOS #; Value: 0.0; Range: 0.0-0.50; Units: K/mm3; Status: F Test: BASO #; Value: 0.0; Range: 0.0-0.2; Units: K/mm3; Status: F Test: LARGE UNSTAINED CELL #; Value: 0.1; Range: 0.0-0.4; Units: K/mm3; Status: F Lab Order: MED Profile; SPEC'M 04/23/16 07:54 Test: GLUCOSE, FASTING; Value: 83; Range: 70-105; Units: MG/DL; Status: F Test: BLOOD UREA NITROGEN; Value: 6; Range: 7-18; Abnormal: Below low normal; Units: MG/DL; Status: F Test: CREATININE FOR GFR; Value: 0.82; Range: 0.55-1.02; Units: MG/DL; Status: F Test: GLOMERULAR FILTRATION RATE; Value: > 60.0; Range: >60; Status: F Test: SODIUM LEVEL; Value: 142; Range: 136-145; Units: MEQ/L; Status: F Test: POTASSIUM SERUM; Value: 3.6; Range: 3.5-5.1; Units: MEQ/L; Status: F Test: CHLORIDE LEVEL; Value: 108; Range: 98-107; Abnormal: Above high normal; Units: MEQ/L; Status: F Test: CARBON DIOXIDE LEVEL; Value: 22; Range: 21-32; Units: MEQ/L; Status: F Test: ANION GAP; Value: 12; Range: 8-16; Units: MEQ/L; Status: F Test: CALCIUM LEVEL; Value: 9.2; Range: 8.5-10.1; Units: MG/DL; Status: F Test Note: ; Units are mL/min/1.73 m2 Chronic Kidney Disease Staging per NKF: Stage I & II GFR >=60 Normal to Mildly Decreased Stage III GFR 30-59 Moderately Decreased Stage IV GFR 15-29 Severely Decreased Stage V GFR <15 Very Little GFR Left ESRD GFR <15 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 Lab Order: UA; SPEC'M 04/23/16 07:54 Test: APPEARANCE, URINE; Value: CLOUDY; Range: CLEAR; Abnormal: Above high normal; Status: F Test: COLOR, URINE; Value: YELLOW; Range: YELLOW; Status: F Test: PH,URINE; Value: 5.0; Range: 5.0-9.0; Units: UNITS; Status: F Test: SPECIFIC GRAVITY URINE AUTO; Value: 1.018; Range: 1.002-1.035; Status: F Test: PROTEIN, URINE AUTO; Value: 1+; Range: NEGATIVE; Abnormal: Above high normal; Units: mg/dL; Status: F Test: GLUCOSE, URINE (UA) AUTO; Value: NEGATIVE; Range: NEGATIVE; Units: mg/dL; Status: F Test: KETONE, URINE AUTO; Value: 2+; Range: NEGATIVE; Abnormal: Above high normal; Units: mg/dL; Status: F Test: UROBILINOGEN, URINE AUTO; Value: 0.2; Range: 0.0-2.0; Units: mg/dL; Status: F Test: BILIRUBIN, URINE AUTO; Value: NEGATIVE; Range: NEGATIVE; Status: F Test: NITRITE, URINE AUTO; Value: NEGATIVE; Range: NEGATIVE; Status: F Test: LEUKOCYTE ESTERASE, URINE AUTO; Value: TRACE; Range: NEGATIVE; Abnormal: Above high normal; Status: F Test: BLOOD, URINE BLOOD; Value: NEGATIVE; Range: NEGATIVE; Status: F Test: WBC, URINE AUTO; Value: 6; Range: 0-3; Abnormal: Above high normal; Units: /HPF; Status: F Test: RBC, URINE AUTO; Value: 2; Range: 0-3; Units: /HPF; Status: F Test: BACTERIA, URINE AUTO; Value: NEGATIVE; Range: NEGATIVE; Status: F Test: SQUAMOUS EPITHELIAL CELL UR AU; Value: 14; Range: 0-6; Units: /HPF; Status: F Test: MUCUS, URINE; Value: SMALL; Range: NEGATIVE; Status: F Test: HYALINE CAST, URINE AUTO; Value: 0; Range: 0-1; Units: /LPF; Status: F Outcome: 10:20 Discharge ordered by Provider. ar2 10:26 Discharge Assessment: Patient awake, alert and oriented x 3. No cognitive and/or dsf functional deficits noted. Patient verbalized understanding of disposition instructions. patient administered narcotics - no. The following High Risk Discharge criteria are identified: None. Discharged to home ambulatory, with significant other. Condition: stable. Discharge instructions given to patient, Instructed on discharge instructions, follow up and referral plans. medication usage, Demonstrated understanding of instructions, medications, Pt was receptive of discharge instructions/ teaching. Prescriptions given X 2, Work note provided to patient. No special radiology studies were completed. Property sent home with patient. 10:28 Patient left the ED. dsf Signatures: Dispatcher [employer] EDMS Genny Dan, RN Gen Armijo RN RN carmelinag Erin Anne, CORRECTIONS CADET CORRECTIONS CADET jam1 Deandre Julian, Reg Reg lg Juvenal Ellis PA-C PA-C ar2 Fuller, Desiree,ROSEMARY RN f Tl Almanza, Reg Reg pm4 MTDD
--- NOTE | 2016-04-25 11:28 | EDDOCDS ---
Physician Documentation [facility] Name: Mariposa Browne Age: 25 yrs Sex: Female : 1990 Arrival Date: 04/23/2016 Time: 07:15 Bed I5 / M5 Private MD: Disposition: 04/23/16 10:20 Discharged to Home/Self Care. Impression: Gastro-esophageal reflux disease without esophagitis, Nausea and vomiting, state - second trimester. - Condition is Stable. - Discharge Instructions: Hyperemesis Gravidarum, Heartburn During , Second Trimester of , [id number]. - Prescriptions for Protonix 40 mg Oral Tablet - take 1 tablet by ORAL route once daily; 30 tablet. Diclegis 10- 10 mg Oral - take 2 tablet by ORAL route as directed take 2 tablests at night and 1 in the morning for nausea; 30 tablet. - Medication Reconciliation, Local Pharmacy Hours, Family Work Release, Work Release Form - 1 day form. - Follow up: [place], OB; When: Call to arrange an appointment; Reason: Recheck today's complaints, Continuance of care. - Problem is new. - Symptoms have improved. 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 Historical: - Allergies: no known allergies; - Home Meds: 1. Vitamin 27-0.8 mg Oral tab 1 tab once daily (Last dose: 04/19/2016) 2. Tylenol 325 mg Oral tab 1 tab every 4-6 hours (Last dose: 04/19/2016) 3. Zantac 150 mg Oral cap Unknown once daily (Last dose: 04/19/2016) - PMHx: GERD; - PSHx: Cholecystectomy; - Social history: Smoking status: Patient states was never smoker of tobacco. No barriers to communication noted, The patient speaks fluent Yi. - Family history: Not pertinent. - : The pt / caregiver states he / she is not on anticoagulants. Home medication list is obtained from the patient. - Exposure Risk Screening:: None identified. 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 6 in. (167.64 cm); Pain 0/10; 10:20 BP 116 / 68; Pulse 107; Resp 18; Temp 98.2; Pulse Ox 100% ; Pain 0/10; jam1 07:25 Body Mass Index 32.93 (92.53 kg, 167.64 cm) dwg MDM: 07:39 IV Saline Lock ordered. ar2 07:39 NS 0.9% 1000 ml IV at bolus once ordered. ar2 07:39 Metoclopramide 10 mg IV at 40 mg/hr once over 15 mins ordered. ar2 07:39 Undress patient appropriately for examination ordered. ar2 07:39 Heart Tones ordered. ar2 07:39 CBC with Diff Ordered. EDMS 07:39 MED Profile Ordered. EDMS 07:39 UA Ordered. EDMS 07:52 Fluid Challenge ordered. ar2 08:05 Financial registration complete. lg 08:05 [facility] Agreement was scanned into [employer] and attached to record. lg 08:57 CBC with Diff Reviewed. ar2 08:57 MED Profile Reviewed. ar2 08:57 UA Reviewed. ar2 08:58 NS 0.9% 500 ml IV at bolus once ordered. ar2 09:04 Famotidine 20 mg PO once ordered. ar2 09:09 pantoprazole 40 mg IV at bolus once ordered. ar2 09:19 Urine Culture Ordered. EDMS 12:55 T-Sheet-- Draft Copy was scanned into [employer] and attached to record. gb Administered Medications: 08:08 Drug: Metoclopramide 10 mg [metoclopramide 5 mg/mL injection solution] Route: IV; Rate: kcs 40 mg/hr; Infused Over: 15 mins; Site: right antecubital; 10:02 Follow up: IV Status: Completed infusion; IV Intake: 50ml kcs 08:25 Drug: NS 0.9% 1000 ml [sodium chloride 0.9 % intravenous solution] Route: IV; Rate: kcs bolus; Site: right antecubital; 10: Follow up: IV Status: Completed infusion; IV Intake: 1000ml kcs 09:07 Not Given (Duplicate Order): Famotidine 20 mg PO once ar2 09:15 Drug: pantoprazole 40 mg [pantoprazole 40 mg intravenous solution] Route: IV; Rate: dsf bolus; Site: right antecubital; 10:27 Follow up: IV Status: Completed infusion; IV Intake: 10ml dsf 09:25 Drug: NS 0.9% 500 ml [sodium chloride 0.9 % intravenous solution] Route: IV; Rate: kcs bolus; Site: right antecubital; 10:02 Follow up: IV Status: Completed infusion; IV Intake: 500ml kcs Signatures: Dispatcher [employer] EDGen Newberry RN RN dwg Antonietta Pereira, Reg Reg gb Deandre Julian, Reg Reg lg Juvenal Ellis, PA-C PA-C ar2 Elis Mendiola RN RN dsf Sleeman, Kacey RN kcs The chart was reviewed and I authenticate all verbal orders and agree with the evaluation and treatment provided.Attachments: 08:05 [facility] Payment Agreement lg 12:55 T-Sheet-- Draft Copy gb Chart Complete MTDD
--- NOTE | 2016-04-25 11:28 | EDDOCDS ---
Physician Documentation [facility] Name: Mariposa Browne Age: 25 yrs Sex: Female : 1990 Arrival Date: 04/23/2016 Time: 07:15 Bed I5 / M5 Private MD: Disposition: 04/23/16 10:20 Discharged to Home/Self Care. Impression: Gastro-esophageal reflux disease without esophagitis, Nausea and vomiting, state - second trimester. - Condition is Stable. - Discharge Instructions: Hyperemesis Gravidarum, Heartburn During , Second Trimester of , [id number]. - Prescriptions for Protonix 40 mg Oral Tablet - take 1 tablet by ORAL route once daily; 30 tablet. Diclegis 10- 10 mg Oral - take 2 tablet by ORAL route as directed take 2 tablests at night and 1 in the morning for nausea; 30 tablet. - Medication Reconciliation, Local Pharmacy Hours, Family Work Release, Work Release Form - 1 day form. - Follow up: [place], OB; When: Call to arrange an appointment; Reason: Recheck today's complaints, Continuance of care. - Problem is new. - Symptoms have improved. 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 Historical: - Allergies: no known allergies; - Home Meds: 1. Vitamin 27-0.8 mg Oral tab 1 tab once daily (Last dose: 04/19/2016) 2. Tylenol 325 mg Oral tab 1 tab every 4-6 hours (Last dose: 04/19/2016) 3. Zantac 150 mg Oral cap Unknown once daily (Last dose: 04/19/2016) - PMHx: GERD; - PSHx: Cholecystectomy; - Social history: Smoking status: Patient states was never smoker of tobacco. No barriers to communication noted, The patient speaks fluent Divehi. - Family history: Not pertinent. - : The pt / caregiver states he / she is not on anticoagulants. Home medication list is obtained from the patient. - Exposure Risk Screening:: None identified. 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 6 in. (167.64 cm); Pain 0/10; 10:20 BP 116 / 68; Pulse 107; Resp 18; Temp 98.2; Pulse Ox 100% ; Pain 0/10; jam1 07:25 Body Mass Index 32.93 (92.53 kg, 167.64 cm) dwg MDM: 07:39 IV Saline Lock ordered. ar2 07:39 NS 0.9% 1000 ml IV at bolus once ordered. ar2 07:39 Metoclopramide 10 mg IV at 40 mg/hr once over 15 mins ordered. ar2 07:39 Undress patient appropriately for examination ordered. ar2 07:39 Heart Tones ordered. ar2 07:39 CBC with Diff Ordered. EDMS 07:39 MED Profile Ordered. EDMS 07:39 UA Ordered. EDMS 07:52 Fluid Challenge ordered. ar2 08:05 Financial registration complete. lg 08:05 [facility] [place] Agreement was scanned into [employer] and attached to record. lg 08:57 CBC with Diff Reviewed. ar2 08:57 MED Profile Reviewed. ar2 08:57 UA Reviewed. ar2 08:58 NS 0.9% 500 ml IV at bolus once ordered. ar2 09:04 Famotidine 20 mg PO once ordered. ar2 09:09 pantoprazole 40 mg IV at bolus once ordered. ar2 09:19 Urine Culture Ordered. EDMS 12:55 T-Sheet-- Draft Copy was scanned into [employer] and attached to record. gb Administered Medications: 08:08 Drug: Metoclopramide 10 mg [metoclopramide 5 mg/mL injection solution] Route: IV; Rate: kcs 40 mg/hr; Infused Over: 15 mins; Site: right antecubital; 10:02 Follow up: IV Status: Completed infusion; IV Intake: 50ml kcs 08:25 Drug: NS 0.9% 1000 ml [sodium chloride 0.9 % intravenous solution] Route: IV; Rate: kcs bolus; Site: right antecubital; 10: Follow up: IV Status: Completed infusion; IV Intake: 1000ml kcs 09:07 Not Given (Duplicate Order): Famotidine 20 mg PO once ar2 09:15 Drug: pantoprazole 40 mg [pantoprazole 40 mg intravenous solution] Route: IV; Rate: dsf bolus; Site: right antecubital; 10:27 Follow up: IV Status: Completed infusion; IV Intake: 10ml dsf 09:25 Drug: NS 0.9% 500 ml [sodium chloride 0.9 % intravenous solution] Route: IV; Rate: kcs bolus; Site: right antecubital; 10:02 Follow up: IV Status: Completed infusion; IV Intake: 500ml kcs Signatures: Dispatcher [employer] EDGen Newberry RN RN dwg Antonietta Pereira, Reg Reg gb Deandre Julian, Reg Reg lg Juvenal Ellis, PA-C PA-C ar2 Elis Mendiola RN RN dsf Sleeman, Kacey RN kcs The chart was reviewed and I authenticate all verbal orders and agree with the evaluation and treatment provided.Attachments: 08:05 [facility] Payment Agreement lg 12:55 T-Sheet-- Draft Copy gb Chart Complete MTDD
--- NOTE | 2016-04-25 11:28 | EDDOCDS ---
Nurse's Notes [facility] Name: Mariposa Browne Age: 25 yrs Sex: Female : 1990 Arrival Date: 04/23/2016 Time: 07:15 Bed I5 / M5 Private MD: Diagnosis: Gastro-esophageal reflux disease without esophagitis;Nausea and vomiting; state-second trimester Presentation: 04/23 07:20 Presenting complaint: Patient states: Vomiting for 4 days, states 20 weeks , dwg seen here Friday, diagnosed with UTI, has not started antibiotic yet, denies back or pelvic pain. Adult Sepsis Screening: The patient does not have new or worsening altered mentation. Patient's respiratory rate is less than 22. Systolic blood pressure is greater than 100. Patient has a qSOFA score of 0- Negative Sepsis Screen. Suicide/Homicide risk assessment- the patient denies having any suicidal and/or homicidal ideations and does not present with any other emotional, behavioral or mental health complaints. Status: The patient is a dependent. Transition of care: patient was not received from another setting of care. 07:20 Acuity: STEVEN Level 3 [facility] 07:20 Method Of Arrival: Walkin/Carried/Asstd dwg Triage Assessment: 07:25 General: Appears in no apparent distress. Pain: Denies pain. HIV screening NA for this dwg visit Offered previously. RESPIRATORY PRACTITIONER: 07:25 Unsure when LMP dwg Historical: - Allergies: no known allergies; - Home Meds: 1. Vitamin 27-0.8 mg Oral tab 1 tab once daily (Last dose: 04/19/2016) 2. Tylenol 325 mg Oral tab 1 tab every 4-6 hours (Last dose: 04/19/2016) 3. Zantac 150 mg Oral cap Unknown once daily (Last dose: 04/19/2016) - PMHx: GERD; - PSHx: Cholecystectomy; - Social history: Smoking status: Patient states was never smoker of tobacco. No barriers to communication noted, The patient speaks fluent Slovenian. - Family history: Not pertinent. - : The pt / caregiver states he / she is not on anticoagulants. Home medication list is obtained from the patient. - Exposure Risk Screening:: None identified. Screenin:12 Screening information is obtained from the patient. Primary language is Slovenian. Fall jam1 risk: No risks identified. Assistance ADL's: requires no assistance with activities of daily living. Abuse/DV Screen: The patient / caregiver reports he/she is: not in a situation that causes fear, pain or injury. Nutritional screening: No deficits noted. Exposure Risk Screening: None identified. Advance Directives: Currently, there is no health care proxy. There is no active DNR order. There is no living will. There is no Power of Internal Medicine Physician Assistant. Advance directive information has not previously been placed in an [facility] medical record. Further advance directive information is declined. home support is adequate. Assessment: 08:32 Reassessment: patient shaking - warm blankets applied. While hanging IV - patient noted kcs to be snoring. Has been taking sips of water and retaining. at bedside.. General: Appears ill, well developed, well nourished, well groomed, Behavior is cooperative, quiet. Pain: Denies pain. Neurological: Level of Consciousness is awake, alert. Respiratory: Airway is patent Respiratory effort is even, unlabored, Respiratory pattern is regular, symmetrical. GI: Abdomen is obese, Bowel sounds diminished in right upper quadrant, left upper quadrant, right lower quadrant and left lower quadrant Abd is soft X 4 quads Reports nausea, vomiting. Derm: Skin is intact, is healthy with good turgor, Skin is dry, Skin is black. 09:15 Adult Sepsis Screening: The patient does not have new or worsening altered mentation. dsf Patient's respiratory rate is less than 22. Systolic blood pressure is greater than 100. Patient has a qSOFA score of 0- Negative Sepsis Screen. General: Appears ill, Behavior is cooperative. Pain: Denies pain. Neurological: Level of Consciousness is awake, alert, Oriented to person, place, time. Cardiovascular: Capillary refill < 3 seconds. Respiratory: Airway is patent Respiratory effort is even, unlabored, Respiratory pattern is regular, symmetrical. GI: Reports indigestion. Derm: Skin is dry, Skin is black, Skin temperature is warm. 09:39 Reassessment: patient sipping on apple juice - states heartburn is better. IV infusing..kcs 10:26 Adult Sepsis Screening: The patient does not have new or worsening altered mentation. dsf Patient's respiratory rate is less than 22. Systolic blood pressure is greater than 100. Patient has a qSOFA score of 0- Negative Sepsis Screen. General: Appears ill, Behavior is appropriate for age, cooperative. Pain: Denies pain. Neurological: Level of Consciousness is awake, alert. Cardiovascular: Capillary refill < 3 seconds. Respiratory: Airway is patent Respiratory effort is even, unlabored, Respiratory pattern is regular, symmetrical. Derm: Skin is dry, Skin is black, Skin temperature is warm. Vital Signs: 07:25 BP 136 / 79; Pulse 102; Resp 20; Temp 98.1(T); Pulse Ox 99% on R/A; Weight 92.53 kg; dwg Height 5 ft. 6 in. (167.64 cm); Pain 0/10; 10:20 BP 116 / 68; Pulse 107; Resp 18; Temp 98.2; Pulse Ox 100% ; Pain 0/10; jam1 07:25 Body Mass Index 32.93 (92.53 kg, 167.64 cm) dwg Vitals: 07:25 Log In Time: April 23, 2016 at 07:15. dwg 08:35 Heart Tones 193BPM. kcs ED Course: 07:17 Patient visited by Tl Almanza, Reg. pm4 07:17 Patient moved to Waiting pm4 07:24 Triage Initiated dwg 07:27 Patient moved to I5 / M5 dwg 07:37 [facility]venal Ellis [facility] ar2 07:37 Elijah So MD is Attending Physician. ar2 07:47 Patient visited by Juvenal Ellis PA-C. ar2 07:50 Inserted saline lock: 20 gauge in right antecubital area The patient tolerated the kcs procedure well. 07:56 CBC with Diff Sent. kcs 07:56 MED Profile Sent. kcs 07:57 UA Sent. kcs 08:04 Patient name changed from Octiva\S\\S\Tarah Browne\S\ to Octiva\S\ \S\Tarah Browne. EDMS 08:05 [facility] [place] Payment Agreement was scanned into [employer] and attached to record. lg 09:12 Pt greeted and oriented to ED. Patient advised of names of staff involved in care, jam1 location of call vasques, wait times and NPO status. Patient has correct armband on for positive identification. Placed in gown. Bed in low position. Call light in reach. Side rails up X 1. Adult w/ patient. Door closed. 09:16 Patient visited by Elis Mendiola RN. dsf 10:16 Benitez Duke, OB is Referral Physician. ar2 10:26 The patient / caregiver is instructed regarding the plan of care and ED course. dsf 10:26 Discontinued lock intact, bleeding controlled, pressure dressing applied, No kcs redness/swelling at site. 10:26 No procedures done that require assistance. dsf 12:55 T-Sheet-- Draft Copy was scanned into [employer] and attached to record. gb Administered Medications: 08:08 Drug: Metoclopramide 10 mg [metoclopramide 5 mg/mL injection solution] Route: IV; Rate: kcs 40 mg/hr; Infused Over: 15 mins; Site: right antecubital; 10:02 Follow up: IV Status: Completed infusion; IV Intake: 50ml kcs 08:25 Drug: NS 0.9% 1000 ml [sodium chloride 0.9 % intravenous solution] Route: IV; Rate: kcs bolus; Site: right antecubital; 10:02 Follow up: IV Status: Completed infusion; IV Intake: 1000ml kcs 09:07 Not Given (Duplicate Order): Famotidine 20 mg PO once ar2 09:15 Drug: pantoprazole 40 mg [pantoprazole 40 mg intravenous solution] Route: IV; Rate: dsf bolus; Site: right antecubital; 10:27 Follow up: IV Status: Completed infusion; IV Intake: 10ml dsf 09:25 Drug: NS 0.9% 500 ml [sodium chloride 0.9 % intravenous solution] Route: IV; Rate: kcs bolus; Site: right antecubital; 10:02 Follow up: IV Status: Completed infusion; IV Intake: 500ml kcs Intake: 10:02 IV: 500.00ml; Total: 500.00ml. kcs 10:02 IV: 1000.00ml; Total: 1500.00ml. kcs 10:02 IV: 50.00ml; Total: 1550.00ml. kcs 10:27 IV: 10.00ml; Total: 1560.00ml. dsf Order Results: Lab Order: CBC with Diff; SPEC'M 04/23/16 07:54 Test: WHITE BLOOD COUNT; Value: 10.0; Range: 4.0-10.0; Units: K/mm3; Status: F Test: RED BLOOD COUNT; Value: 4.26; Range: 4.00-5.40; Units: M/mm3; Status: F Test: HEMOGLOBIN; Value: 12.2; Range: 12.0-16.0; Units: g/dl; Status: F Test: HEMATOCRIT; Value: 36.5; Range: 36.0-47.0; Units: %; Status: F Test: MEAN CORPUSCULAR VOLUME; Value: 85.8; Range: 80.0-96.0; Units: fl; Status: F Test: MEAN CORPUSCULAR HEMOGLOBIN; Value: 28.6; Range: 27.0-33.0; Units: pg; Status: F Test: MEAN CORPUSCULAR HGB CONC; Value: 33.4; Range: 32.0-36.5; Units: g/dl; Status: F Test: RED CELL DISTRIBUTION WIDTH; Value: 14.0; Range: 11.5-14.5; Units: %; Status: F Test: PLATELET COUNT, AUTOMATED; Value: 257; Range: 150-450; Units: k/mm3; Status: F Test: NEUTROPHILS %; Value: 89.1; Range: 36.0-66.0; Abnormal: Above high normal; Units: %; Status: F Test: LYMPH %; Value: 6.8; Range: 24.0-44.0; Abnormal: Below low normal; Units: %; Status: F Test: MONO %; Value: 2.4; Range: 0.0-5.0; Units: %; Status: F Test: EOS %; Value: 0.1; Range: 0.0-3.0; Units: %; Status: F Test: BASO %; Value: 0.5; Range: 0.0-1.0; Units: %; Status: F Test: LARGE UNSTAINED CELL %; Value: 1.0; Range: 0.0-4.0; Units: %; Status: F Test: NEUTROPHILS #; Value: 9.0; Range: 1.8-7.7; Abnormal: Above high normal; Units: K/mm3; Status: F Test: LYMPH #; Value: 0.8; Range: 1.5-6.5; Abnormal: Below low normal; Units: K/mm3; Status: F Test: MONO #; Value: 0.2; Range: 0.0-0.8; Units: K/mm3; Status: F Test: EOS #; Value: 0.0; Range: 0.0-0.50; Units: K/mm3; Status: F Test: BASO #; Value: 0.0; Range: 0.0-0.2; Units: K/mm3; Status: F Test: LARGE UNSTAINED CELL #; Value: 0.1; Range: 0.0-0.4; Units: K/mm3; Status: F Lab Order: MED Profile; SPEC'M 04/23/16 07:54 Test: GLUCOSE, FASTING; Value: 83; Range: 70-105; Units: MG/DL; Status: F Test: BLOOD UREA NITROGEN; Value: 6; Range: 7-18; Abnormal: Below low normal; Units: MG/DL; Status: F Test: CREATININE FOR GFR; Value: 0.82; Range: 0.55-1.02; Units: MG/DL; Status: F Test: GLOMERULAR FILTRATION RATE; Value: > 60.0; Range: >60; Status: F Test: SODIUM LEVEL; Value: 142; Range: 136-145; Units: MEQ/L; Status: F Test: POTASSIUM SERUM; Value: 3.6; Range: 3.5-5.1; Units: MEQ/L; Status: F Test: CHLORIDE LEVEL; Value: 108; Range: 98-107; Abnormal: Above high normal; Units: MEQ/L; Status: F Test: CARBON DIOXIDE LEVEL; Value: 22; Range: 21-32; Units: MEQ/L; Status: F Test: ANION GAP; Value: 12; Range: 8-16; Units: MEQ/L; Status: F Test: CALCIUM LEVEL; Value: 9.2; Range: 8.5-10.1; Units: MG/DL; Status: F Test Note: ; Units are mL/min/1.73 m2 Chronic Kidney Disease Staging per NKF: Stage I & II GFR >=60 Normal to Mildly Decreased Stage III GFR 30-59 Moderately Decreased Stage IV GFR 15-29 Severely Decreased Stage V GFR <15 Very Little GFR Left ESRD GFR <15 on STORAGE [employer] ARCHITECT Lab Order: UA; SPEC'M 04/23/16 07:54 Test: APPEARANCE, URINE; Value: CLOUDY; Range: CLEAR; Abnormal: Above high normal; Status: F Test: COLOR, URINE; Value: YELLOW; Range: YELLOW; Status: F Test: PH,URINE; Value: 5.0; Range: 5.0-9.0; Units: UNITS; Status: F Test: SPECIFIC GRAVITY URINE AUTO; Value: 1.018; Range: 1.002-1.035; Status: F Test: PROTEIN, URINE AUTO; Value: 1+; Range: NEGATIVE; Abnormal: Above high normal; Units: mg/dL; Status: F Test: GLUCOSE, URINE (UA) AUTO; Value: NEGATIVE; Range: NEGATIVE; Units: mg/dL; Status: F Test: KETONE, URINE AUTO; Value: 2+; Range: NEGATIVE; Abnormal: Above high normal; Units: mg/dL; Status: F Test: UROBILINOGEN, URINE AUTO; Value: 0.2; Range: 0.0-2.0; Units: mg/dL; Status: F Test: BILIRUBIN, URINE AUTO; Value: NEGATIVE; Range: NEGATIVE; Status: F Test: NITRITE, URINE AUTO; Value: NEGATIVE; Range: NEGATIVE; Status: F Test: LEUKOCYTE ESTERASE, URINE AUTO; Value: TRACE; Range: NEGATIVE; Abnormal: Above high normal; Status: F Test: BLOOD, URINE BLOOD; Value: NEGATIVE; Range: NEGATIVE; Status: F Test: WBC, URINE AUTO; Value: 6; Range: 0-3; Abnormal: Above high normal; Units: /HPF; Status: F Test: RBC, URINE AUTO; Value: 2; Range: 0-3; Units: /HPF; Status: F Test: BACTERIA, URINE AUTO; Value: NEGATIVE; Range: NEGATIVE; Status: F Test: SQUAMOUS EPITHELIAL CELL UR AU; Value: 14; Range: 0-6; Units: /HPF; Status: F Test: MUCUS, URINE; Value: SMALL; Range: NEGATIVE; Status: F Test: HYALINE CAST, URINE AUTO; Value: 0; Range: 0-1; Units: /LPF; Status: F Lab Order: Urine Culture; SPEC'M 04/23/16 07:54 Test: URINE CULTURE; Value: URINE CULTURE RESULT NO GROWTH CLINICAL SIGNIFICANCE 1 ORGANISM; Status: F Outcome: 10:20 Discharge ordered by Provider. ar2 10:26 Discharge Assessment: Patient awake, alert and oriented x 3. No cognitive and/or dsf functional deficits noted. Patient verbalized understanding of disposition instructions. patient administered narcotics - no. The following High Risk Discharge criteria are identified: None. Discharged to home ambulatory, with significant other. Condition: stable. Discharge instructions given to patient, Instructed on discharge instructions, follow up and referral plans. medication usage, Demonstrated understanding of instructions, medications, Pt was receptive of discharge instructions/ teaching. Prescriptions given X 2, Work note provided to patient. No special radiology studies were completed. Property sent home with patient. 10:28 Patient left the ED. dsf Signatures: Dispatcher [employer] EDMS Genny Dan, RN RN Gen Ca RN RN dwg Erin Anne, GOLF COURSE ASSISTANT GOLF COURSE ASSISTANT jam1 Antonietta Pereira, Reg Reg gb Deandre Julian, Reg Reg lg Juvenal Ellis, PA-C PAArlene ar2 Elis Mendiola RN RN dsf Tl Almanza, Reg Reg pm4 Chart Complete [place]
== END 2016-04-23 10:28 | disposition home or self-care (01) ==
LOC: M ED 07:15
DX: O21.9 Vomiting of pregnancy, unspecified (principal); O99.282 Endocrine, nutritional and metabolic diseases complicating pregnancy, second trimester; E86.0 Dehydration; O99.612 Diseases of the digestive system complicating pregnancy, second trimester; K21.9 Gastro-esophageal reflux disease without esophagitis; Z79.899 Other long term (current) drug therapy; Z3A.20 20 weeks gestation of pregnancy
CPT/HCPCS: 80048; 81001; 85025; 87086; 96365; 96366; 96368; 99284; C9113; J2765

== ENCOUNTER 2016-05-28 02:36 | Outpatient (CLI) | payer OTHER ==
[~2016-05-28] VITALS: Ht 165.1 cm; Wt 80.0 kg
[2016-05-28] MEDS ORDERED: LACTATED RINGER'S 1000 ML IV STA (04:17)
[2016-05-28] MEDS ORDERED: ONDANSETRON 4MG/2ML VIAL (J2405) IV ONE (04:30)
[2016-05-28] MEDS ORDERED: ONDANSETRON 4MG/2ML VIAL (J2405) As Ordered ONE (04:50)
--- NOTE | 2016-05-28 06:59 | IPNPDOC ---
Text Note Date of Service The patient was seen on 05/28/16. NOTE L&D Triage Note Subjective: Mariposa is a 25yo with a hercules IUP at approx. 25wk gestation who presents to triage complaining of not being able to keep anything down due to nausea/vomiting for the past 3 days. She has been trying to take sips of water, but is even vomiting that up. No diarrhea. No fevers/chills. Does endorse nasal congestion but no sore throat or cough. 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 No syncope or dizziness but feels dehydrated. She does have significant GERD that was well treated with Protonix, but she hasnt been able to keep that down, so likely contributing to her symptoms. ROS: Admits- Gross movement Denies- Vaginal bleeding/discharge/LOF, myalgias, flank pain, dysuria, CTXs Objective: VS: normotensive, pulse 110bpm, afebrile NST: FHR 150s with moderate variability, pos accels, neg decels. Reassuring for gestational age. [place]: no contractions or uterine irritability. Physical Exam- General: WDWN gravid female in NAD Mental : AAOx3 HEENT: mucus membranes appear dry. Pulmonary: CTAB without rales, rhonchi, or wheezes. Cardiac: RRR without murmurs, gallops, or rubs. Abdominal: Gravid abdomen without guarding or tenderness. Extremity: no LE edema bilaterally Labs: UA contaminated with 21 squam cells, but 2+ ketones noted Assessment: Mariposa is a 25yo with a hercules IUP at approx. 25wk gestation with clinical presentation suggestive of gastritis, likely of viral origin and dehydration as evidenced by tachycardia and 2+ ketones in urine. Patient treated with 2L LR IVF and 4mg IV Zofran x1 with improvement in her nausea. Tachycardia slightly improved. No other abnormalities on exam. Reassuring NST without CTXs or uterine irritability. course complicated by sickle cell trait. Plan: -Zofran 8mg PO q6hr given from clinic flex stock -Rx placed to [place] for OR Phenergan and refill for Zofran and her protonix -pt given quarters for 48 hours -encouraged continued hydration -F/U at next scheduled OB appt. -Return to triage for worsening of symptoms, vaginal lof/bleeding, reduced movement, ctxs, fever -[facility] reviewed Dr. Carol Valdez MD [place] Jenkins MD May 28, 2016 06:53
== END 2016-05-28 07:08 | disposition home or self-care (01) ==
LOC: M LDO 02:36
PROVIDERS: ATTEND Obstetrics & Gynecology
DX: O21.9 Vomiting of pregnancy, unspecified (principal); Z3A.25 25 weeks gestation of pregnancy; E86.0 Dehydration; O99.282 Endocrine, nutritional and metabolic diseases complicating pregnancy, second trimester
CPT/HCPCS: 59025; 81001; 87086; 96374; J2405

== ENCOUNTER 2016-05-31 13:38 | Outpatient (CLI) | payer OTHER ==
[~2016-05-31] VITALS: Ht 165.1 cm; Wt 84.0 kg
[2016-05-31] MEDS ORDERED: ONDA1TAB15 PO (13:48)
[2016-05-31] MEDS ORDERED: PHEN2SUP PR (13:48)
[2016-05-31] MEDS ORDERED: LACTATED RINGER'S 1000 ML IV ONE (14:00)
[2016-05-31 14:02] VITALS: BP 134/83
[2016-05-31] MEDS: LR 1,000 ML IV SCH ×3 (15:26→19:00)
[2016-05-31] MEDS ORDERED: ONDANSETRON 4MG/2ML VIAL (J2405) IV ONE ×2 (16:00→17:45)
[2016-05-31] MEDS ORDERED: diphenhydrAMINE INJ 50MG/ML VIAL (J1200) IV ONE (16:00)
[2016-05-31] MEDS ORDERED: PANTOPRAZOLE 40MG INJ (PROTONIX) (C9113) IV ONE (17:30)
[2016-05-31 19:05] LABS: MEAN CORPUSCULAR HEMOGLOBIN 28.3 pg (27.0-33.0); MEAN CORPUSCULAR VOLUME 83.3 fl (80.0-96.0); RED CELL DISTRIBUTION WIDTH 12.7 % (11.5-14.5); WHITE BLOOD COUNT 9.1 K/mm3 (4.0-10.0)
[2016-05-31] MEDS ORDERED: PANTOPRAZOLE SODIUM 40 MG in D5W MINI-BAG PLUS 50 ML IV SCH (19:15)
[2016-05-31 19:39] LABS: ANION GAP 11 MEQ/L (8-16); BLOOD UREA NITROGEN 4 MG/DL (7-18); CALCIUM LEVEL 8.6 MG/DL (8.5-10.1); CARBON DIOXIDE LEVEL 22 MEQ/L (21-32); CHLORIDE LEVEL 107 MEQ/L (98-107); CREATININE FOR GFR 0.68 MG/DL (0.55-1.02); GLOMERULAR FILTRATION RATE > 60.0 (>60); GLUCOSE, FASTING 69 MG/DL (70-105); POTASSIUM SERUM 3.4 MEQ/L (3.5-5.1); SODIUM LEVEL 140 MEQ/L (136-145)
[2016-05-31 19:40] LABS: ALBUMIN 3.1 GM/DL (3.2-5.2); ALBUMIN/GLOBULIN RATIO 0.79 (1.00-1.93); ALKALINE PHOSPHATASE 57 U/L (45-117); ALT/SGPT 26 U/L (12-78); AST/SGOT 28 U/L (15-37); BILIRUBIN,TOTAL 0.6 MG/DL (0.2-1.0)
[2016-05-31 20:00] VITALS: BP 132/86
[2016-05-31] MEDS ORDERED: LR 1,000 ML IV SCH (20:15)
[2016-05-31] MEDS: PROMETHAZINE INJ 25 MG/ML VIAL (J2550) IV SCH (21:22)
[2016-05-31] MEDS: diphenhydrAMINE INJ 50MG/ML VIAL (J1200) IV SCH (21:23)
[2016-05-31] MEDS: ONDANSETRON 4MG/2ML VIAL (J2405) IV SCH (22:38)
[2016-06-01 00:01] VITALS: BP 126/78
[2016-06-01] MEDS: ONDANSETRON 4MG/2ML VIAL (J2405) IV SCH ×6 (02:15→21:29)
[2016-06-01 06:00] VITALS: BP 129/81
[2016-06-01] MEDS: LR 1,000 ML IV SCH ×4 (06:45→23:36)
[2016-06-01] MEDS: PSEUDOEPHEDRINE 30 MG TAB PO SCH (08:24)
[2016-06-01] MEDS: diphenhydrAMINE INJ 50MG/ML VIAL (J1200) IV SCH ×3 (08:24→21:30)
[2016-06-01] MEDS: LORATADINE 10 MG TAB PO SCH (08:24)
[2016-06-01] MEDS: PROMETHAZINE INJ 25 MG/ML VIAL (J2550) IV SCH ×3 (08:24→21:30)
[2016-06-01] MEDS: AUGMENTIN 875 MG TAB PO SCH ×2 (09:25→21:30)
[2016-06-01 10:11] VITALS: BP 130/77
[2016-06-01 14:25] VITALS: BP 130/76
[2016-06-01] MEDS: PANTOPRAZOLE 40MG TAB (PROTONIX) PO SCH (15:30)
[2016-06-01 18:08] VITALS: BP 138/86
[2016-06-01 21:57] VITALS: BP 141/72
[2016-06-02 01:45] VITALS: BP 139/72
[2016-06-02] MEDS: ONDANSETRON 4MG/2ML VIAL (J2405) IV SCH ×2 (01:56→05:56)
[2016-06-02 05:39] VITALS: BP 134/78
[2016-06-02] MEDS: LR 1,000 ML IV SCH (07:36)
[2016-06-02] MEDS: PSEUDOEPHEDRINE 30 MG TAB PO SCH (08:05)
[2016-06-02] MEDS: PANTOPRAZOLE 40MG TAB (PROTONIX) PO SCH (08:05)
[2016-06-02] MEDS: AUGMENTIN 875 MG TAB PO SCH (08:05)
[2016-06-02] MEDS: LORATADINE 10 MG TAB PO SCH (09:34)
[2016-06-02] MEDS ORDERED: PROT1TAB2 PO (09:52)
[2016-06-02] MEDS ORDERED: AUGM500T34 PO (09:52)
[2016-06-02] MEDS ORDERED: SUDA30TA PO (09:52)
[2016-06-02] MEDS ORDERED: CLAR10CA3 PO (09:52)
[2016-06-02 10:00] VITALS: BP 153/83
[2016-06-02] MEDS ORDERED: ONDANSETRON 4 MG TAB (S0181) PO ONE (10:00)
== END 2016-06-02 10:20 | disposition home or self-care (01) ==
LOC: M LDO 13:38 → M OBS 20:09 → M LDO 06-02 10:20
PROVIDERS: ATTEND Student in an Organized Health Care Education/Training Program
DX: O99.89 Other specified diseases and conditions complicating pregnancy, childbirth and the puerperium (principal); O21.9 Vomiting of pregnancy, unspecified; Z3A.25 25 weeks gestation of pregnancy
CPT/HCPCS: 36415; 59025; 80053; 81001; 82150; 83690; 85025; 85027; 87086; 96365; 96366; C9113; J1200; J2405

== ENCOUNTER → 2016-05-31 | Outpatient (CLI) | payer OTHER ==
[~2016-05-31] MED LIST: AUGM500T34 PO; CLAR10CA3 PO; ONDA1TAB15 PO; PHEN2SUP PR; PROT1TAB2 PO; SUDA30TA PO
[2016-05-31 10:22] LABS: BASO % 0.2 % (0.0-1.0); EOS # 0.1 K/mm3 (0.0-0.50); EOS % 0.9 % (0.0-3.0); LARGE UNSTAINED CELL # 0.1 K/mm3 (0.0-0.4); LARGE UNSTAINED CELL % 1.1 % (0.0-4.0); LYMPH # 1.1 K/mm3 (1.5-6.5); LYMPH % 11.1 % (24.0-44.0); MEAN CORPUSCULAR HEMOGLOBIN 28.4 pg (27.0-33.0); MEAN CORPUSCULAR HGB CONC 33.7 g/dl (32.0-36.5); MEAN CORPUSCULAR VOLUME 84.3 fl (80.0-96.0); MONO # 0.3 K/mm3 (0.0-0.8); MONO % 3.8 % (0.0-5.0); NEUTROPHILS # 7.6 K/mm3 (1.8-7.7); NEUTROPHILS % 82.9 % (36.0-66.0); PLATELET COUNT, AUTOMATED 253 k/mm3 (150-450); RED CELL DISTRIBUTION WIDTH 12.6 % (11.5-14.5); WHITE BLOOD COUNT 9.1 K/mm3 (4.0-10.0)
[2016-05-31 10:51] LABS: ALBUMIN 3.4 GM/DL (3.2-5.2); ALBUMIN/GLOBULIN RATIO 0.74 (1.00-1.93); ALKALINE PHOSPHATASE 58 U/L (45-117); ALT/SGPT 19 U/L (12-78); AMYLASE 117 U/L (25-115); ANION GAP 12 MEQ/L (8-16); AST/SGOT 23 U/L (15-37); BILIRUBIN,TOTAL 0.6 MG/DL (0.2-1.0); BLOOD UREA NITROGEN 6 MG/DL (7-18); CALCIUM LEVEL 8.9 MG/DL (8.5-10.1); CARBON DIOXIDE LEVEL 23 MEQ/L (21-32); CHLORIDE LEVEL 105 MEQ/L (98-107); CREATININE FOR GFR 0.77 MG/DL (0.55-1.02); GLOMERULAR FILTRATION RATE > 60.0 (>60); GLUCOSE, FASTING 74 MG/DL (70-105); POTASSIUM SERUM 3.3 MEQ/L (3.5-5.1); SODIUM LEVEL 140 MEQ/L (136-145)
== END ==
LOC: M LAB 09:41
PROVIDERS: ATTEND Midwife
DX: R11.2 Nausea with vomiting, unspecified (principal)

== ENCOUNTER 2016-07-25 15:56 | Outpatient (CLI) | payer OTHER ==
[~2016-07-25] VITALS: Ht 165.1 cm; Wt 76.0 kg
[2016-07-25] MEDS ORDERED: ACET50TA PO (16:14)
[2016-07-25] MEDS ORDERED: PRENTAB9 PO (16:14)
[2016-07-25] MEDS ORDERED: PROTPAK PO (16:14)
[2016-07-25 16:18] VITALS: BP 126/85
[2016-07-25] MEDS ORDERED: LR 1,000 ML IV ONE (16:30)
[2016-07-25] MEDS ORDERED: LR 1,000 ML IV SCH (16:30)
[2016-07-25 17:10] LABS: MEAN CORPUSCULAR HEMOGLOBIN 26.3 pg (27.0-33.0); MEAN CORPUSCULAR VOLUME 82.4 fl (80.0-96.0); RED CELL DISTRIBUTION WIDTH 13.7 % (11.5-14.5); WHITE BLOOD COUNT 10.3 K/mm3 (4.0-10.0)
[2016-07-25 17:20] LABS: ALBUMIN 2.9 GM/DL (3.2-5.2); ALBUMIN/GLOBULIN RATIO 0.81 (1.00-1.93); ALKALINE PHOSPHATASE 100 U/L (45-117); ALT/SGPT 15 U/L (12-78); ANION GAP 12 MEQ/L (8-16); AST/SGOT 19 U/L (15-37); BILIRUBIN,TOTAL 1.1 MG/DL (0.2-1.0); BLOOD UREA NITROGEN 6 MG/DL (7-18); CALCIUM LEVEL 8.9 MG/DL (8.5-10.1); CARBON DIOXIDE LEVEL 21 MEQ/L (21-32); CHLORIDE LEVEL 109 MEQ/L (98-107); CREATININE FOR GFR 0.79 MG/DL (0.55-1.02); GLOMERULAR FILTRATION RATE > 60.0 (>60); GLUCOSE, FASTING 70 MG/DL (70-105); POTASSIUM SERUM 3.7 MEQ/L (3.5-5.1); SODIUM LEVEL 142 MEQ/L (136-145); TOTAL PROTEIN 6.5 GM/DL (6.4-8.2)
[2016-07-25] MEDS ORDERED: ONDANSETRON 4MG/2ML VIAL (J2405) As Ordered ONE (17:43)
[2016-07-25] MEDS ORDERED: ONDANSETRON 4MG/2ML VIAL (J2405) IV ONE (17:45)
[2016-07-25 17:47] VITALS: BP 146/94
[2016-07-25 18:26] VITALS: BP 137/89
== END 2016-07-25 19:00 | disposition home or self-care (01) ==
LOC: M LDO 15:56
PROVIDERS: ATTEND Student in an Organized Health Care Education/Training Program
DX: O21.9 Vomiting of pregnancy, unspecified (principal); Z3A.33 33 weeks gestation of pregnancy
CPT/HCPCS: 36415; 59025; 80053; 81001; 85027; 87086; 96365; 96366; 96375; J2405

== ENCOUNTER 2016-07-28 05:52 | Outpatient (CLI) | payer OTHER ==
[~2016-07-28 05:52] MED LIST changes: +ACET50TA PO; +PRENTAB9 PO; +PROTPAK PO
[2016-07-28] MEDS ORDERED: PROT1TAB2 PO (13:12)
[2016-07-28] MEDS ORDERED: FERR325T3 PO (13:46)
[2016-07-28] MEDS ORDERED: ZOFR8TAB PO (13:46)
== END 2016-07-28 06:01 | disposition home or self-care (01) ==
LOC: M LDO 05:52
PROVIDERS: ATTEND Obstetrics & Gynecology
DX: O26.893 Other specified pregnancy related conditions, third trimester (principal); O21.9 Vomiting of pregnancy, unspecified; Z3A.34 34 weeks gestation of pregnancy

== ENCOUNTER 2016-07-28 06:12 | Inpatient (IN) | payer OTHER ==
[~2016-07-28] VITALS: Ht 165.1 cm; Wt 77.9 kg
[2016-07-28] MEDS ORDERED: NS 1,000 ML IV ONE (06:45)
[2016-07-28] MEDS ORDERED: METOCLOPRAMIDE INJ 10MG/2ML VIAL (J2765) IV ONE (06:45)
[2016-07-28] MEDS ORDERED: PANTOPRAZOLE 40MG INJ (PROTONIX) (C9113) IV ONE (07:45)
[2016-07-28 07:46] LABS: BASO % 0.2 % (0.0-1.0); EOS # 0.1 K/mm3 (0.0-0.50); LARGE UNSTAINED CELL # 0.1 K/mm3 (0.0-0.4); LARGE UNSTAINED CELL % 1.5 % (0.0-4.0); LYMPH % 9.6 % (24.0-44.0); MEAN CORPUSCULAR HEMOGLOBIN 26.9 pg (27.0-33.0); MEAN CORPUSCULAR HGB CONC 33.2 g/dl (32.0-36.5); MEAN CORPUSCULAR VOLUME 81.2 fl (80.0-96.0); MONO # 0.5 K/mm3 (0.0-0.8); MONO % 5.4 % (0.0-5.0); NEUTROPHILS # 7.5 K/mm3 (1.8-7.7); NEUTROPHILS % 82.2 % (36.0-66.0); PLATELET COUNT, AUTOMATED 286 k/mm3 (150-450); RED CELL DISTRIBUTION WIDTH 14.1 % (11.5-14.5); WHITE BLOOD COUNT 9.1 K/mm3 (4.0-10.0)
[2016-07-28 08:00] LABS: ALBUMIN/GLOBULIN RATIO 0.73 (1.00-1.93); ALKALINE PHOSPHATASE 114 U/L (45-117); ALT/SGPT 174 U/L (12-78); ANION GAP 13 MEQ/L (8-16); AST/SGOT 186 U/L (15-37); BILIRUBIN,DIRECT 0.9 MG/DL (0.0-0.2); BILIRUBIN,TOTAL 1.3 MG/DL (0.2-1.0); BLOOD UREA NITROGEN 5 MG/DL (7-18); CALCIUM LEVEL 8.6 MG/DL (8.5-10.1); CARBON DIOXIDE LEVEL 20 MEQ/L (21-32); CHLORIDE LEVEL 109 MEQ/L (98-107); CREATININE FOR GFR 0.83 MG/DL (0.55-1.02); GLOMERULAR FILTRATION RATE > 60.0 (>60); GLUCOSE, FASTING 59 MG/DL (70-105); POTASSIUM SERUM 3.8 MEQ/L (3.5-5.1); SODIUM LEVEL 142 MEQ/L (136-145); TOTAL PROTEIN 7.1 GM/DL (6.4-8.2)
--- NOTE | 2016-07-28 12:04 | REP ---
Abdominal right upper quadrant ultrasound: There are no comparisons. The patient has a cholecystectomy. The hepatic parenchyma is homogeneous. There is no intrahepatic or extrahepatic biliary duct dilatation, the common duct measures 3.5 mm in diameter. The visualized small portion of the pancreatic head is unremarkable. There is right renal hydronephrosis. The right kidney is normal size measuring 12.8 cm craniocaudad. No right renal calculus, mass or cyst are identified. Impression: Cholecystectomy. No biliary duct dilatation. Right hydronephrosis. Signed by Gen Sims MD 07/28/2016 11:56 A
[2016-07-28] MEDS ORDERED: D5W/0.45% SODIUM CHLORIDE 1,000 ML IV ONE (12:30)
[2016-07-28] MEDS ORDERED: PROT1TAB2 PO (13:12)
[2016-07-28] MEDS ORDERED: FERR325T3 PO (13:46)
[2016-07-28] MEDS ORDERED: ZOFR8TAB PO (13:46)
[2016-07-28] MEDS ORDERED: PROMETHAZINE INJ 25 MG/ML VIAL (J2550) IV PRN (14:00)
[2016-07-28] MEDS ORDERED: ONDANSETRON 4MG/2ML VIAL (J2405) IV PRN (14:00)
[2016-07-28] MEDS ORDERED: NS 1,000 ML IV SCH ×2 (14:15→15:15)
[2016-07-28] MEDS: PANTOPRAZOLE 40MG INJ (PROTONIX) (C9113) IV SCH (15:00)
[2016-07-28 15:21] LABS: CALCIUM LEVEL 9.4 MG/DL (8.5-10.1); GAMMA GLUTAMYLTRANSPEPTIDASE 45 U/L (5-55)
[2016-07-28 15:49] LABS: MEAN CORPUSCULAR HGB CONC 33.7 g/dl (32.0-36.5); MEAN CORPUSCULAR VOLUME 80.2 fl (80.0-96.0); RED CELL DISTRIBUTION WIDTH 14.2 % (11.5-14.5); WHITE BLOOD COUNT 10.5 K/mm3 (4.0-10.0)
--- NOTE | 2016-07-28 16:22 | REP ---
Obstetric ultrasound for growth: There are no comparisons available. There is a single intrauterine gestation in a vertex presentation. There is movement and cardiac activity. The heart rate is 170 beats per minute. The placenta is posterior and fundal. There is no placenta previa or abruptio. The placenta demonstrates grade zero maturity. The amniotic fluid volume subjectively is normal. The amniotic fluid index is 11.9 pounds is Gloria 1 - 24.1). The cervix measures 3.3 cm in length. The maternal adnexa and cul-de-sac are unremarkable. By today's ultrasound the gestational age is 34 weeks 3 days with an MARK of 09/05/2016. By LMP gestational age is 33-week 6 days. weight is 2236 grams (4 pounds, 14 ounces). This is the 40th percentile for 33 weeks 6 days. Umbilical artery Doppler assessment: SD ratio 2.56 (3.00 - 4.00). Resistive index 0.61 and a 0.63 - 0.79). The diastolic flow velocity is 24 point centimeters per second. This is in the normal range. An attempt at of anatomy is performed although the gestational age is not optimal for anatomy. The following structures are identified and are unremarkable: Cranium, cavum, facial profile, lungs, four-chamber heart, cardiac right and left ventricular outflow tracts, diaphragm, stomach, three-vessel cord, spine. Suboptimally demonstrated are the choroid plexus, cerebellum, cord insertion and upper lower extremities because of position. The kidneys are unremarkable. There is no hydronephrosis. Signed by Gen Sims MD 07/28/2016 04:13 P
--- NOTE | 2016-07-28 16:26 | REP ---
This is a abdominal ultrasound for a second attempt to evaluate the pancreas. On the study performed earlier today only a small portion of the pancreas was visible. On the current study portions of the head, body and tail of the pancreas are visible but not optimally visualized. No gross pancreatic abnormality is identified by ultrasound. The the patient is . Right renal hydronephrosis is again identified, similar to the study earlier today. Signed by Gen Sims MD 07/28/2016 04:17 P
[2016-07-28 17:29] LABS: INR 1.08
[2016-07-28 17:30] VITALS: BP 107/72
[2016-07-28] MEDS: LR 1,000 ML IV SCH (18:22)
[2016-07-29 02:06] LABS: METHADONE URINE NEGATIVE (NEGATIVE)
[2016-07-29] MEDS: LR 1,000 ML IV SCH ×3 (02:22→18:09)
[2016-07-29] MEDS ORDERED: PROMETHAZINE INJ 25 MG/ML VIAL (J2550) IV SCH (02:45)
[2016-07-29] MEDS: PROMETHAZINE INJ 25 MG/ML VIAL (J2550) IV SCH ×4 (03:07→21:59)
[2016-07-29] MEDS ORDERED: ONDANSETRON 4MG/2ML VIAL (J2405) IV SCH (04:00)
[2016-07-29] MEDS: ONDANSETRON 4MG/2ML VIAL (J2405) IV SCH ×4 (04:13→21:59)
[2016-07-29 05:47] VITALS: BP 100/57
[2016-07-29 07:28] LABS: BASO % 0.2 % (0.0-1.0); EOS # 0.1 K/mm3 (0.0-0.50); EOS % 0.9 % (0.0-3.0); LARGE UNSTAINED CELL # 0.1 K/mm3 (0.0-0.4); LARGE UNSTAINED CELL % 1.7 % (0.0-4.0); LYMPH # 1.1 K/mm3 (1.5-6.5); LYMPH % 14.5 % (24.0-44.0); MEAN CORPUSCULAR HEMOGLOBIN 26.5 pg (27.0-33.0); MEAN CORPUSCULAR HGB CONC 32.8 g/dl (32.0-36.5); MEAN CORPUSCULAR VOLUME 80.8 fl (80.0-96.0); MONO # 0.4 K/mm3 (0.0-0.8); MONO % 5.4 % (0.0-5.0); NEUTROPHILS # 5.3 K/mm3 (1.8-7.7); NEUTROPHILS % 77.3 % (36.0-66.0); PLATELET COUNT, AUTOMATED 234 k/mm3 (150-450); RED CELL DISTRIBUTION WIDTH 14.3 % (11.5-14.5); WHITE BLOOD COUNT 6.9 K/mm3 (4.0-10.0)
[2016-07-29 07:47] LABS: ALBUMIN 2.3 GM/DL (3.2-5.2); ALBUMIN/GLOBULIN RATIO 0.68 (1.00-1.93); ALKALINE PHOSPHATASE 93 U/L (45-117); ALT/SGPT 178 U/L (12-78); ANION GAP 10 MEQ/L (8-16); AST/SGOT 138 U/L (15-37); BILIRUBIN,TOTAL 0.9 MG/DL (0.2-1.0); BLOOD UREA NITROGEN 3 MG/DL (7-18); CALCIUM LEVEL 8.1 MG/DL (8.5-10.1); CARBON DIOXIDE LEVEL 20 MEQ/L (21-32); CHLORIDE LEVEL 113 MEQ/L (98-107); CREATININE FOR GFR 0.73 MG/DL (0.55-1.02); GLOMERULAR FILTRATION RATE > 60.0 (>60); GLUCOSE, FASTING 71 MG/DL (70-105); POTASSIUM SERUM 3.3 MEQ/L (3.5-5.1); SODIUM LEVEL 143 MEQ/L (136-145); TOTAL PROTEIN 5.7 GM/DL (6.4-8.2)
--- NOTE | 2016-07-29 09:38 | REP ---
RIGHT UPPER QUADRANT ULTRASOUND: Real-time sonographic evaluation of the right upper quadrant performed. Patient has had a prior cholecystectomy. There is no intrahepatic or extrahepatic biliary dilatation, common bile duct measuring 3 mm in diameter. Liver and pancreas demonstrate no gross mass, pancreas not optimally seen due to overlying bowel gas. Right kidney demonstrates moderate hydronephrosis, unchanged since the prior exam of 07/28/2016. No free fluid is seen. Patient is and the fetus demonstrates a heart rate of 163 beats per minute. IMPRESSION: Status post cholecystectomy. No biliary dilatation or free fluid. No change moderate right hydronephrosis. Signed by Gen Woody MD 07/29/2016 08:06 P
[2016-07-29 09:51] VITALS: BP 122/81
[2016-07-29 14:00] VITALS: BP 135/76
[2016-07-29 18:00] VITALS: BP 134/79
[2016-07-29 22:19] VITALS: BP 134/86
[2016-07-30] VITALS (18 sets, daily range): BP systolic 110–132; BP diastolic 61–87
[2016-07-30] MEDS: LR 1,000 ML IV SCH ×2 (03:26→10:53)
[2016-07-30] MEDS: PROMETHAZINE INJ 25 MG/ML VIAL (J2550) IV SCH ×4 (03:27→21:53)
[2016-07-30] MEDS: ONDANSETRON 4MG/2ML VIAL (J2405) IV SCH ×4 (03:27→21:53)
[2016-07-30 08:01] LABS: MEAN CORPUSCULAR HEMOGLOBIN 28.2 pg (27.0-33.0); MEAN CORPUSCULAR HGB CONC 34.5 g/dl (32.0-36.5); MEAN CORPUSCULAR VOLUME 81.6 fl (80.0-96.0); RED CELL DISTRIBUTION WIDTH 14.7 % (11.5-14.5); WHITE BLOOD COUNT 9.9 K/mm3 (4.0-10.0)
[2016-07-30 08:24] LABS: ALBUMIN 2.7 GM/DL (3.2-5.2); ALBUMIN/GLOBULIN RATIO 0.77 (1.00-1.93); ALKALINE PHOSPHATASE 111 U/L (45-117); ALT/SGPT 243 U/L (12-78); ANION GAP 12 MEQ/L (8-16); AST/SGOT 177 U/L (15-37); BILIRUBIN,DIRECT 0.7 MG/DL (0.0-0.2); BLOOD UREA NITROGEN 3 MG/DL (7-18); CALCIUM LEVEL 8.4 MG/DL (8.5-10.1); CARBON DIOXIDE LEVEL 23 MEQ/L (21-32); CHLORIDE LEVEL 108 MEQ/L (98-107); CREATININE FOR GFR 0.81 MG/DL (0.55-1.02); GLOMERULAR FILTRATION RATE > 60.0 (>60); GLUCOSE, FASTING 67 MG/DL (70-105); POTASSIUM SERUM 3.4 MEQ/L (3.5-5.1); SODIUM LEVEL 143 MEQ/L (136-145); TOTAL PROTEIN 6.2 GM/DL (6.4-8.2)
[2016-07-30] MEDS: PANTOPRAZOLE 40MG INJ (PROTONIX) (C9113) IV SCH (09:43)
[2016-07-30] MEDS ORDERED: NIFEdipine 10 MG CAP PO ONE ×2 (13:30→15:00)
[2016-07-30] MEDS ORDERED: INDOMETHACIN 25 MG CAP PO ONE (13:30)
[2016-07-30] MEDS: BETAMETHASONE SOLUSPAN 6MG/ML INJ 5ML (J0702) IM SCH (15:00)
[2016-07-30] MEDS ORDERED: INDOMETHACIN 25 MG CAP PO SCH (19:30)
[2016-07-31] VITALS (17 sets, daily range): BP systolic 109–130; BP diastolic 63–86
[2016-07-31] MEDS: PROMETHAZINE INJ 25 MG/ML VIAL (J2550) IV SCH ×3 (03:00→15:52)
[2016-07-31] MEDS: ONDANSETRON 4MG/2ML VIAL (J2405) IV SCH ×3 (04:00→16:20)
[2016-07-31] MEDS: INDOMETHACIN 25 MG CAP PO SCH ×3 (08:09→17:57)
[2016-07-31 08:53] LABS: ALBUMIN 2.8 GM/DL (3.2-5.2); ALBUMIN/GLOBULIN RATIO 0.74 (1.00-1.93); ALKALINE PHOSPHATASE 116 U/L (45-117); ALT/SGPT 284 U/L (12-78); AMYLASE 174 U/L (25-115); ANION GAP 18 MEQ/L (8-16); AST/SGOT 191 U/L (15-37); BILIRUBIN,TOTAL 1.5 MG/DL (0.2-1.0); BLOOD UREA NITROGEN 3 MG/DL (7-18); CALCIUM LEVEL 8.3 MG/DL (8.5-10.1); CARBON DIOXIDE LEVEL 20 MEQ/L (21-32); CHLORIDE LEVEL 107 MEQ/L (98-107); CREATININE FOR GFR 0.81 MG/DL (0.55-1.02); GLOMERULAR FILTRATION RATE > 60.0 (>60); GLUCOSE, FASTING 71 MG/DL (70-105); POTASSIUM SERUM 3.4 MEQ/L (3.5-5.1); SODIUM LEVEL 145 MEQ/L (136-145); TOTAL PROTEIN 6.6 GM/DL (6.4-8.2)
[2016-07-31] MEDS: LR 1,000 ML IV SCH ×4 (10:16→22:48)
[2016-07-31] MEDS: PANTOPRAZOLE 40MG INJ (PROTONIX) (C9113) IV SCH (10:53)
[2016-07-31] MEDS: BETAMETHASONE SOLUSPAN 6MG/ML INJ 5ML (J0702) IM SCH (13:24)
[2016-07-31] MEDS: PROMETHAZINE INJ 25 MG/ML VIAL (J2550) IV PRN (21:30)
[2016-07-31] MEDS ORDERED: ONDANSETRON 4 MG TAB (S0181) PO PRN (21:45)
[2016-07-31] MEDS: CALCIUM CARBONATE 500 MG CHEW U/D PO PRN (21:52)
[2016-07-31] MEDS ORDERED: ONDANSETRON 4MG/2ML VIAL (J2405) IV PRN (22:00)
[2016-08-01 01:15] VITALS: BP 115/72
[2016-08-01] MEDS: LR 1,000 ML IV SCH ×3 (02:16→18:16)
[2016-08-01] MEDS: CALCIUM CARBONATE 500 MG CHEW U/D PO PRN (05:11)
[2016-08-01 05:52] LABS: MEAN CORPUSCULAR HEMOGLOBIN 26.9 pg (27.0-33.0); MEAN CORPUSCULAR HGB CONC 33.8 g/dl (32.0-36.5); MEAN CORPUSCULAR VOLUME 79.6 fl (80.0-96.0); RED CELL DISTRIBUTION WIDTH 14.8 % (11.5-14.5); WHITE BLOOD COUNT 11.1 K/mm3 (4.0-10.0)
[2016-08-01 06:02] LABS: ALBUMIN 2.7 GM/DL (3.2-5.2); ALBUMIN/GLOBULIN RATIO 0.69 (1.00-1.93); ALKALINE PHOSPHATASE 107 U/L (45-117); ALT/SGPT 282 U/L (12-78); AMYLASE 232 U/L (25-115); ANION GAP 13 MEQ/L (8-16); AST/SGOT 183 U/L (15-37); BILIRUBIN,TOTAL 1.6 MG/DL (0.2-1.0); BLOOD UREA NITROGEN 4 MG/DL (7-18); CARBON DIOXIDE LEVEL 22 MEQ/L (21-32); CHLORIDE LEVEL 108 MEQ/L (98-107); CREATININE FOR GFR 0.63 MG/DL (0.55-1.02); GLOMERULAR FILTRATION RATE > 60.0 (>60); GLUCOSE, FASTING 82 MG/DL (70-105); POTASSIUM SERUM 3.5 MEQ/L (3.5-5.1); SODIUM LEVEL 143 MEQ/L (136-145); TOTAL PROTEIN 6.6 GM/DL (6.4-8.2)
--- NOTE | 2016-08-01 06:59 | IPNPDOC ---
Text Note Date of Service The patient was seen on 08/01/16. NOTE 25y/o @34+3 admitted to [facility] for nausea/vomiting, elevated LFTS/Lipase. Was seen and worked up for above, only noted finding is right hydronephrosis ( common in preg). Does not report any vomiting last 2-3 days. Has now prn PO Zofran, prn IV phenergan. No reported back pain or ctx pains or epigastric pain at all currently or overnight. Denies VB/LOF. Had ctx's yest and TVUS yesterday showed CL 2.5cm with U shaped funneling. NST changed to q 6 hrs yest evening, has been reassuring and the straps were bothering her. O: VSS/AF but 1747 and 1940 26APR had T's 100.3, rpt's afebrile since Gen: A&Ox3, NAD Resp: CTAB CV: RRR ABD: Gravid/BS present Ext: 2+ BLE Back: no back/flank pain, no CVAT FHT: Cat I, irreg ctx's Significant Labs with little improvement this AM 0530: AST 183, ALT 282, Clare 232 , Lip 1283, Hct 26.5, Plt 245, WBC 11.1 A/P: - Now HD#5 from above. - Cont to increase diet and trend symptoms. - Daily labs - Hospitalist/GI consult this AM - will continue to monitor - LR 125/hr - Q 6 hr NST VS,Fishbone, I+O VS, Fishbone, I+O Laboratory Tests 07/31/16 08:23 Calcium Level 8.3 L, Aspartate Amino Transf (AST/SGOT) 191 H, Alanine Aminotransferase (ALT/SGPT) 284 H, Alkaline Phosphatase 116, Total Bilirubin 1.5 H, Total Protein 6.6, Albumin 2.8 L 08/01/16 05:26 Calcium Level 9.0, Aspartate Amino Transf (AST/SGOT) 183 H, Alanine Aminotransferase (ALT/SGPT) 282 H, Alkaline Phosphatase 107, Total Bilirubin 1.6 H, Total Protein 6.6, Albumin 2.7 L, Red Blood Count 3.33 L, Mean Corpuscular Volume 79.6 L, Mean Corpuscular Hemoglobin 26.9 L, Mean Corpuscular Hemoglobin Concent 33.8, Red Cell Distribution Width 14.8 H Vital Signs Date Time Temp Pulse Resp B/P (MAP) Pulse Ox O2 Delivery O2 Flow Rate FiO2 08/01/16 01:15 97.9 92 18 115/72 (86) 07/29/16 18:00 100 Room Air I&O- Last 24 Hours up to 6 AM 08/01/16 06:00 Intake Total 1150 ml Output Total 150 ml Balance 1000 ml SESSIONS,JACK Bautista MD Aug 01, 2016 06:58
[2016-08-01] MEDS: PANTOPRAZOLE 40MG INJ (PROTONIX) (C9113) IV SCH (08:08)
[2016-08-01] MEDS: FERROUS SULFATE 325MG TAB PO SCH (08:08)
[2016-08-01] MEDS: PROMETHAZINE INJ 25 MG/ML VIAL (J2550) IV PRN ×2 (10:48→22:35)
[2016-08-01 18:00] VITALS: BP 115/68
--- NOTE | 2016-08-01 21:09 | IPNPDOC ---
Subjective Date Seen The patient was seen on 08/01/16. Subjective Chief Complaint/HPI The patient is a 25-year-old female admitted with a reason for visit of Hydronephrosis; Nausea & Vomiting. Events since last encounter pt seen and examined, states her abd pain has resolved, she had one episode of vomiting yesterday but nothing since, tolerating food but not much of an appetite Objective Physical Examination General Exam: Positive: Alert, No Acute Distress ENT Exam: Positive: Atraumatic, Mucous membr. moist/pink, Pharynx Normal Chest Exam: Positive: Clear to auscultation, Normal air movement Abdomen Exam: Positive: Normal bowel sounds, Soft, Negative: Tenderness, Hepatospenomegaly Extremity Exam: Positive: Normal pulses, Negative: Clubbing, Cyanosis, Edema Assessment /Plan Problems (1) Elevated liver enzymes Status: Acute Problem Text: * still elevated unknown etiology * ultrasound showed common bile duct dilatation * s/p ricardo * hepatitis panel negative * medications reviewed * recommend Gi consult (2) Nausea & vomiting Status: Resolved VS, I&O, 24H, Fishbone Vital Signs/I&O Vital Signs Date Time Temp Pulse Resp B/P (MAP) Pulse Ox O2 Delivery O2 Flow Rate FiO2 08/01/16 18:00 99.0 98 18 115/68 (84) 100 Room Air I&O- Last 24 Hours up to 6 AM 08/01/16 06:00 Intake Total 1150 ml Output Total 150 ml Balance 1000 ml Laboratory Data 24H LABS Laboratory Tests 2 08/01/16 05:26: Anion Gap 13, Glomerular Filtration Rate > 60.0, Blood Urea Nitrogen 4L, Creatinine 0.63, Sodium Level 143, Potassium Level 3.5, Chloride Level 108H, Carbon Dioxide Level 22, Calcium Level 9.0, Aspartate Amino Transf (AST/SGOT) 183H, Alanine Aminotransferase (ALT/SGPT) 282H, Alkaline Phosphatase 107, Total Bilirubin 1.6H, Total Protein 6.6, Albumin 2.7L, Albumin/Globulin Ratio 0.69L, Amylase Level 232H, Lipase 1283H CBC/BMP Laboratory Tests 08/01/16 05:26 Red Blood Count 3.33 L, Mean Corpuscular Volume 79.6 L, Mean Corpuscular Hemoglobin 26.9 L, Mean Corpuscular Hemoglobin Concent 33.8, Red Cell Distribution Width 14.8 H, Calcium Level 9.0, Aspartate Amino Transf (AST/SGOT) 183 H, Alanine Aminotransferase (ALT/SGPT) 282 H, Alkaline Phosphatase 107, Total Bilirubin 1.6 H, Total Protein 6.6, Albumin 2.7 L Microbiology Microbiology 07/28/16 Urine Culture - Final, Complete ROSALBA CRONIN DO Aug 01, 2016 21:09
[2016-08-01 22:00] VITALS: BP 114/64
--- NOTE | 2016-08-01 22:31 | CR ---
DATE OF CONSULTATION: 08/01/2016 REQUESTING PHYSICIAN: Obstetrical (OB) service. REASON FOR CONSULTATION: Is abnormal liver enzymes, abnormal lipase, intractable nausea, vomiting. HISTORY OF PRESENT ILLNESS: Mariposa is a 25-year-old female with a previous in 2013 that went without any difficulties. She delivered at 36 weeks at that time and subsequently had a gallbladder attack which required her to have her gallbladder removed. She otherwise was feeling quite well until the current when at week 26 or 25 she started having episodes of nausea, vomiting and was admitted to [facility] on three occasions throughout the rest of her with mildly elevated lipase and transaminase elevations. On her present admission she complained of abdominal pain, nausea, vomiting, but no fevers, itching or any significant chills. She was noted to have a persistently elevated lipase which has increased since her second trimester and persistently elevated transaminases, which are approximately five times normal and on her present admission she is also noted to have cholestasis in the form of a total bilirubin of 1.5/1.6 with a direct bilirubin of 0.7. Notable is that her alkaline phosphatase is normal. PAST MEDICAL HISTORY: No significant medical history. She has sickle cell trait. PREVIOUS SURGICAL HISTORY: Cholecystectomy in 2013. MEDICATIONS: Iron, Phenergan, Zofran and Protonix. SOCIAL HISTORY: Negative for tobacco. Negative for alcohol. Negative for illicit drugs, IV drug abuse. FAMILY HISTORY: Negative for chronic liver disease. It is positive for sickle cell trait and sickle cell anemia. REVIEW OF SYSTEMS: Negative for itching, darkening of urine, weight loss, fevers, chills. Positive for recurrent episodes of extreme nausea and vomiting with baseline mild nausea since week 26 . Cardiac: Negative for orthopnea, paroxysmal nocturnal dyspnea (PND). Gastrointestinal (GI): As per history of present illness (HPI). Genitourinary (): Negative for hematuria, dysuria, malaise. Musculoskeletal: Negative for myalgias, arthralgias. Neurologic: Negative for confusion, unsteady gait, numbness or weakness. PHYSICAL EXAMINATION: Temperature 99.0, pulse 98, respiratory rate 18, blood pressure 150/68, pulse oximetry 100% on room air. General: She is awake, alert and oriented times three in no acute distress, nontoxic in appearance, comfortably in bed. She states that her nausea has subsided. HEENT: Grossly without abnormality. There is no scleral icterus, iritis or uveitis. Neck: Negative for lymphadenopathy. Negative for thyromegaly. Chest: Clear bilaterally. Heart: Regular rate and rhythm, S1, S2, no murmurs or gallops are appreciated. Abdomen: Gravid. It is soft. It is mildly tender in the epigastric area to deep palpation only. No rebound tenderness. No fluid wave. No masses are appreciated. Extremities: Negative for edema. Rectal examination was deferred. Neurological examination: She moves all extremities equally and bilaterally. LABORATORY DATA: Alkaline phosphatase 93/107, GGT 45, AST 183, ALT 282, total bilirubin 1.6, direct bilirubin was 0.7, creatinine 0.63. Amylase is 174/232, lipase is 831/1283, platelet count is 245, hemoglobin 9.0, WBC 11.1. PT/INR is 1.08. 07/28/2016 hepatitis A, B and C markers are negative. Urine toxicology screen is negative. Urine protein 1+. IMAGING STUDIES: 07/29/2016 ultrasound right upper quadrant. Impression: The patient is status post cholecystectomy, common bile duct measures 3 mm in diameter. There is no intra or extrahepatic biliary dilatation. Liver and pancreas demonstrate no lesions. Pancreas was not visualized. The right kidney demonstrates moderate hydronephrosis which is unchanged from previous day's examination. Ultrasound also reveals a uterus. IMPRESSION: 1. Abnormal liver enzymes with primarily moderate transaminitis but also cholestasis in the form of bilirubin only with a normal GGT and normal alkaline phosphatase. 2. Moderate elevations of amylase and lipase. 3. Recurrent presentations with intractable nausea, vomiting, hyperemesis, starting at week 26 and not before. RECOMMENDATIONS: 1. Will check antinuclear antibody, antimitochondrial antibody, ceruloplasmin, hepatitis studies. 2. Will check IgG4 to evaluate for chronic autoimmune pancreatitis. 3. In view of repeat presentations I think it is appropriate that we at this time check an MRCP which will be noncontrast to evaluate for retained bile duct stone. 4. Further recommendations pending lab work and radiological examination. MTDD
[2016-08-02] MEDS: LR 1,000 ML IV SCH ×3 (02:00→18:16)
[2016-08-02 05:55] VITALS: BP 122/80
[2016-08-02] MEDS: FERROUS SULFATE 325MG TAB PO SCH (08:13)
[2016-08-02] MEDS: PANTOPRAZOLE 40MG INJ (PROTONIX) (C9113) IV SCH (08:13)
--- NOTE | 2016-08-02 08:48 | IPNPDOC ---
Text Note Date of Service The patient was seen on 08/02/16. NOTE House Day 6 Mariposa is a 25y/o with SIUP at 34w4d who was admitted to [facility] on 07/28 for nausea/vomiting with discovery of elevated LFTS/Lipase. She had cholecystectomy in prior . RUQ ultrasound only revealed right hydronephrosis, common in . Nausea/vomiting completely resolved x 3 days, last night ate mashed potatoes and subway sandwich. Has occasional GERD. Currently pain free. Denies VB/LOF. Feels good movement. On 07/31, had TVUS that showed CL 2.5cm with U shaped funneling. NSTs have been reactive. Steroid complete. O: Vitals wnl and afebrile General: A&Ox3, NAD Abdomen: Gravid, soft, no pain to palpation, no guarding/rebound Extremities: trace edema of BLE, no pain with palpation of calves NST reactive, irreg ctx's Labs: 08/01/16 CBC: 11.1/9/26.5/245 CMP: 143/3.5/108/22/4/0.63/82 AST 183, ALT 282, Alk phos 107 amylase 232 lipase 1283 07/28/16 Hepatitis A, B and C markers negative Urine toxicology screen negative Urine protein 1+ Radiology: 07/29/16 RUQUS: The patient is status post cholecystectomy, common bile duct measures 3 mm in diameter. There is no intra or extrahepatic biliary dilatation. Liver and pancreas demonstrate no lesions. Pancreas was not visualized. The right kidney demonstrates moderate hydronephrosis which is unchanged from previous day's examination. Ultrasound also reveals a uterus. Mariposa is a 25y/o with SIUP at 34w4d who was admitted to [facility] on 07/28 for nausea/vomiting with discovery of elevated LFTS/Lipase with original concern for pancreatitis. Hx of prior cholecystectomy. Clinically much improved, tolerating PO intake with no n/v. However, labs have not improved as expected. Vitals wnl, benign exam. Reassuring status. Plan: -Appreciate IM recommendations: labs- antinuclear antibody, antimitochondrial antibody, ceruloplasmin, hepatitis studies, IgG4 and plan for MRCP (non-contrast ) today at noon to eval for retained bile duct stone -Continue routine antepartum care -Regular diet with maintenance IVF for now -Daily CMP/amylase/lipase -BID NST -Steroid complete, will make plan for delivery based on lab/radiology eval and clinical course Dr. Carol Valdez MD [place] ILIR VS,Tammy, I+O VS, Tammy, I+O Vital Signs Date Time Temp Pulse Resp B/P (MAP) Pulse Ox O2 Delivery O2 Flow Rate FiO2 08/02/16 05:55 97.9 99 16 122/80 (94) 100 Room Air I&O- Last 24 Hours up to 6 AM 08/02/16 06:00 Intake Total 2975 ml Balance 2975 ml CAROL VALDEZ MD Aug 02, 2016 08:07
[2016-08-02 10:55] LABS: ALBUMIN 2.6 GM/DL (3.2-5.2); ALBUMIN/GLOBULIN RATIO 0.81 (1.00-1.93); ALKALINE PHOSPHATASE 98 U/L (45-117); ALT/SGPT 317 U/L (12-78); AMYLASE 312 U/L (25-115); ANION GAP 9 MEQ/L (8-16); AST/SGOT 206 U/L (15-37); BILIRUBIN,TOTAL 0.7 MG/DL (0.2-1.0); BLOOD UREA NITROGEN 4 MG/DL (7-18); CALCIUM LEVEL 7.9 MG/DL (8.5-10.1); CARBON DIOXIDE LEVEL 27 MEQ/L (21-32); CHLORIDE LEVEL 105 MEQ/L (98-107); CREATININE FOR GFR 0.58 MG/DL (0.55-1.02); GLOMERULAR FILTRATION RATE > 60.0 (>60); GLUCOSE, FASTING 80 MG/DL (70-105); POTASSIUM SERUM 3.1 MEQ/L (3.5-5.1); SODIUM LEVEL 141 MEQ/L (136-145); TOTAL PROTEIN 5.8 GM/DL (6.4-8.2)
--- NOTE | 2016-08-02 14:18 | REP ---
MRCP: MRCP exam is accomplished utilizing multiple heavily T2-weighted sequences in the axial and coronal planes with MIP reconstruction images. Gravid uterus is noted containing a fetus. This is only partially visualized. There is no intrahepatic or extrahepatic biliary dilatation in this patient status post cholecystectomy. There is no definite evidence of choledocholithiasis. Pancreatic duct is normal in caliber. No edema is seen in the pancreas. Visualized portions of the liver appear unremarkable. No free fluid is seen in the upper abdomen. Moderate right hydronephrosis is again noted as was seen on the ultrasound of 07/29/2016. IMPRESSION: No evidence of biliary dilatation and no evidence of pancreatic duct dilatation. No evidence of choledocholithiasis. No evidence of pancreatitis by MRI. Signed by Gen Woody MD 08/02/2016 04:43 P
[2016-08-02 18:00] VITALS: BP 105/58
[2016-08-03] MEDS: LR 1,000 ML IV SCH ×2 (02:16→18:16)
[2016-08-03 07:03] LABS: INR 1.05
[2016-08-03 07:06] VITALS: BP 109/64
[2016-08-03 07:20] LABS: ALBUMIN 2.4 GM/DL (3.2-5.2); ALBUMIN/GLOBULIN RATIO 0.77 (1.00-1.93); ALKALINE PHOSPHATASE 97 U/L (45-117); ALT/SGPT 297 U/L (12-78); AMYLASE 272 U/L (25-115); ANION GAP 9 MEQ/L (8-16); AST/SGOT 187 U/L (15-37); BILIRUBIN,TOTAL 0.7 MG/DL (0.2-1.0); BLOOD UREA NITROGEN 3 MG/DL (7-18); CALCIUM LEVEL 7.8 MG/DL (8.5-10.1); CARBON DIOXIDE LEVEL 27 MEQ/L (21-32); CHLORIDE LEVEL 105 MEQ/L (98-107); CREATININE FOR GFR 0.54 MG/DL (0.55-1.02); GLOMERULAR FILTRATION RATE > 60.0 (>60); GLUCOSE, FASTING 72 MG/DL (70-105); POTASSIUM SERUM 3.1 MEQ/L (3.5-5.1); SODIUM LEVEL 141 MEQ/L (136-145); TOTAL PROTEIN 5.5 GM/DL (6.4-8.2); TRIGLYCERIDES LEVEL 132 MG/DL (<150); URIC ACID 5.4 MG/DL (2.6-6.0)
[2016-08-03] MEDS: FERROUS SULFATE 325MG TAB PO SCH (08:07)
[2016-08-03] MEDS: PANTOPRAZOLE 40MG INJ (PROTONIX) (C9113) IV SCH (08:07)
[2016-08-03] MEDS: FAMOTIDINE 20 MG TAB PO SCH ×2 (12:46→21:31)
--- NOTE | 2016-08-03 15:09 | IPN ---
DATE: 08/03/2016 Mrs. Browne is doing quite well. She feels well. The nausea has markedly reduced and almost completely subsided. She requested one dose of Zofran last night. There has not been any further vomiting. She is able to eat food. There has not been any reports of any fevers or chills. No itching or rashes or headaches. I am also assured by Dr. Myers that the baby is doing well as well. Temperature 98.5, heart rate 80, respiratory rate 16, blood pressure 109/64. GENERAL: She is awake, alert and oriented times three. She is not toxic in appearance, comfortably in bed. She has no complaints. HEAD/EYES/EARS/NOSE/THROAT: Grossly without abnormality. There is no scleral icterus. CHEST: Clear bilaterally. HEART: Regular rate and rhythm, S1-S2. No murmurs or gallops. ABDOMEN: Nontender. No masses felt. EXTREMITIES: Negative for edema. Lab work is by and large, essentially unchanged, perhaps slight improvement on the liver enzymes and lipase. The following values are of note: AST is 187, ALT 297, alkaline phosphatase 97, albumin 2.4, amylase 272, lipase 2101, triglycerides 132, creatinine 0.54, platelet count is 245, WBC 11.0. PT/INR is 1.05. Her MRCP reveals status post cholecystectomy status. No biliary ductal dilatation. Pancreatic duct appears normal. By MRI criteria no pancreatitis was seen. Right hydronephrosis unchanged from previous studies. Pending lab work is HSV 1 and 2, antinuclear antibody, antimitochondrial antibody, IgG4 levels. IMPRESSION: 1. Abnormal liver enzymes in the form of mainly transaminitis at 4-5 times top normal or 2-300 range, unchanged. 2. Increased amylase and lipase. Clinically asymptomatic and no evidence of pancreatitis is seen. 3. Emesis. RECOMMENDATIONS: 1. Await remaining lab work that is still pending. 2. Continue supportive measures. 3. I will discontinue Protonix as this appears to be a new medication for her. I will put her back on Zantac. I am dubious of a drug reaction, however, in face of no clear diagnosis, the possibility of an idiosyncratic drug reaction does exist. DISCUSSION: Her evaluations thus far have not provided a clear picture of her presentation. She does remain quite stable and is clinically doing quite a bit better without any further nausea or vomiting or any abdominal pain. I am at this time also assured that the baby is doing well and free of any signs of distress. The plan will be to continue to observe and await resulting lab work. If this does not give us a clear picture, consideration may be given to a discussion with hepatology, which I will initiate once all lab work has been resulted.
[2016-08-03 18:00] VITALS: BP 111/58
--- NOTE | 2016-08-03 21:52 | IPN ---
DATE: 08/02/2016 This lady is being co-managed by obstetrics, gastrointestinal (GI), and internal medicine. She is a 25-year-old 2, para 1 who came in with extreme nausea and vomiting several days ago, more so impressed by the fact that she was unable to keep anything down. Has had a couple of episodic admissions for same. In her first she had nausea, vomiting extreme nature, but it resolved after the first trimester. While in hospital here, she has been evaluated for elevated lipase, amylase, etiology unknown. To date she has had an magnetic resonance cholangiopancreatography (MRCP), which is normal, a liver ultrasound which is normal, abdominal ultrasound which is normal, and review of the pancreas which is normal. An ultrasound of the fetus shows adequate growth with placenta being normal. Amniotic fluid index (TOO) is normal. Nuclear stress tests (NSTs) are normal. The only issue that was seen was that she had right hydronephrosis. When encountered initially, her labs, she had a complete blood count (CBC) times four, which was normal. Platelets were normal times four. Her coagulation studies were normal. Her chemistry showed an elevation of her anion gap from 18. It is now normal at 9. Her glucoses were all normal. Her calcium was normal. Her amylase has progressively increased from 174 to 232 to 312. Her lipase is increased from 831 to 1283 to 2272. She has had several other immunologic studies, which are pending, and as yet the etiology behind the elevations is unknown. She is presently afebrile. Her blood pressure is 105/58, respirations 18, pulse is 94, and, as mentioned, temperature is 98.2. She is feeling well. She looks well. She is eating. She is well hydrated. She has no other evidence of abnormality outside of her lipase, amylase, and her right hydronephrosis. She is not taking anything for pain medication. She has no epigastric pain. The differential diagnosis for elevated lipase and amylase is usually acute pancreatitis, renal failure, alcoholism. There are definitely different forms of amylase, which can be diagnosed by electrophoresis. There is P and S, which is mainly excreted through the kidney in 25% and reticuloendothelial in 75%. With renal failure one would have either production issue or a clearance issue, and clearly her kidney function is normal. The amylase is also bound to some immunoglobulins and polysaccharides and requires another enzyme in order to be bound. It is usually bound to immunoglobulins and polysaccharides. The other issues with elevated amylase can be celiac disease, HIV, ulcerative colitis, rheumatoid arthritis, all of which have been investigated and found to be negative. One can do an amylase/creatinine ratio to distinguish whether it is benign or there is some other issue, such as cancer. Lipase in itself has several types, lingual, pancreatic, lipoprotein, intestinal, and hepatic. All of them are inhibited by bile acids, and bile acids appear to be normal and would require colipase for activity of lipase. At present, all investigative avenues have been negative, and one wonders if this is physiologic in nature or benign in nature, and it has no consequence to the patient. In any case, in reviewing management of this patient, there may be a time when delivery may be necessary. The patient is going to be 35 weeks in 48 hours. The patient is steroid complete. She has had a previous baby, and induction of labor may be an option. She has had a previous baby at 36 weeks of gestation. I discussed the plan of management with the patient. We spent approximately 1 hour discussing the issues. I also had a telephone consultation with Dr. Ordoñez, who is awaiting some of the pending investigations of chemistry that he ordered. In summary, we have a lady who is at 35 weeks of gestation with elevated lipase, amylase, etiology unknown, presently stable with fetus being stable. Dr. Myers.
[2016-08-03 22:17] VITALS: BP 107/60
[2016-08-04] MEDS: LR 1,000 ML IV SCH (02:16)
[2016-08-04 06:36] VITALS: BP 110/67
[2016-08-04 07:32] LABS: ALBUMIN 2.5 GM/DL (3.2-5.2); ALBUMIN/GLOBULIN RATIO 0.78 (1.00-1.93); ALKALINE PHOSPHATASE 109 U/L (45-117); ALT/SGPT 266 U/L (12-78); AMYLASE 264 U/L (25-115); ANION GAP 8 MEQ/L (8-16); AST/SGOT 136 U/L (15-37); BILIRUBIN,TOTAL 0.6 MG/DL (0.2-1.0); BLOOD UREA NITROGEN 3 MG/DL (7-18); CARBON DIOXIDE LEVEL 30 MEQ/L (21-32); CHLORIDE LEVEL 104 MEQ/L (98-107); CREATININE FOR GFR 0.67 MG/DL (0.55-1.02); GLOMERULAR FILTRATION RATE > 60.0 (>60); GLUCOSE, FASTING 80 MG/DL (70-105); POTASSIUM SERUM 3.2 MEQ/L (3.5-5.1); SODIUM LEVEL 142 MEQ/L (136-145); TOTAL PROTEIN 5.7 GM/DL (6.4-8.2)
[2016-08-04] MEDS: FERROUS SULFATE 325MG TAB PO SCH (08:59)
[2016-08-04] MEDS: FAMOTIDINE 20 MG TAB PO SCH (08:59)
[2016-08-04 09:29] LABS: INR 0.96
--- NOTE | 2016-08-04 10:18 | IPNPDOC ---
Text Note Date of Service The patient was seen on 08/04/16. NOTE House Day 8 Mariposa is a 25y/o with SIUP at 34w6d who was admitted to [facility] on 07/28 for nausea/vomiting with discovery of elevated LFTS/Lipase. She had cholecystectomy in prior . RUQ ultrasound only revealed right hydronephrosis, common in . She underwent MRCP on 08/02 which showed no evidence of pancreatitis. Amylase/lipase/AST/ALT remain elevated despite clinical improvement. Nausea/vomiting completely resolved x 5 days now, had ken[place] food yesterday that was well tolerated. Has occasional GERD, switched from protonix to pepcid on 08/02. Currently pain free. Denies VB/LOF. Feels good movement. On 07/31 , had TVUS that showed CL 2.5cm with U shaped funneling. NSTs have been reactive. Steroid complete. O: Vitals wnl and afebrile General: A&Ox3, NAD Cardiac: S1S2 present, no murmurs Lungs: CTAB Abdomen: Gravid, soft, no pain to palpation, no guarding/rebound Extremities: trace edema of BLE, no pain with palpation of calves NSTs reactive Labs: 08/04/16 CMP: 142/3.2/104/30/3/0.67/80 AST 136, ALT 266 amylase 264 lipase 2144 08/01/16 CBC: 11.1/9/26.5/245 CMP: 143/3.5/108/22/4/0.63/82 AST 183, ALT 282, Alk phos 107 amylase 232 lipase 1283 07/28/16 Hepatitis A, B and C markers negative Urine toxicology screen negative Urine protein 1+ Pending: bile acids, HSV I/II, IgG4 panel, DEYSI, anti-mitochondrial ab, ceruloplasmin Radiology: MRCP 08/02/16 No evidence of biliary dilatation and no evidence of pancreatic duct dilatation. No evidence of choledocholithiasis. No evidence of pancreatitis by MRI. 07/29/16 RUQUS: The patient is status post cholecystectomy, common bile duct measures 3 mm in diameter. There is no intra or extrahepatic biliary dilatation. Liver and pancreas demonstrate no lesions. Pancreas was not visualized. The right kidney demonstrates moderate hydronephrosis which is unchanged from previous day's examination. Ultrasound also reveals a uterus. Mariposa is a 25y/o with SIUP at 34w6d who was admitted to [facility] on 07/28 for nausea/vomiting with discovery of elevated LFTS/lipase/amylase with original concern for pancreatitis. MRCP negative for pancreatitis. Hx of prior cholecystectomy. Clinically much improved, tolerating PO intake with no n/v. However, labs have not improved as expected. Vitals wnl, benign exam. Reassuring status. Plan: -Appreciate GI recommendations -Labs still pending: bile acids, HSV I/II, IgG4 panel, DEYSI, anti-mitochondrial ab, ceruloplasmin -Continue routine antepartum care, consider discharge today with close follow- up in clinic -Regular diet -Daily CMP/amylase/lipase while admitted -BID NST -Steroid complete Dr. Nancy Valdez MD [place] VS,Tammy, I+O VS, Tammy, I+O Laboratory Tests 08/04/16 06:55 Calcium Level 8.0 L, Aspartate Amino Transf (AST/SGOT) 136 H, Alanine Aminotransferase (ALT/SGPT) 266 H, Alkaline Phosphatase 109, Total Bilirubin 0.6 , Total Protein 5.7 L, Albumin 2.5 L Vital Signs Date Time Temp Pulse Resp B/P (MAP) Pulse Ox O2 Delivery O2 Flow Rate FiO2 08/04/16 06:36 98.8 89 16 110/67 (81) 08/02/16 18:00 99 Room Air NANCY VALDEZ MD Aug 04, 2016 10:10
--- NOTE | 2016-08-04 11:19 | DS.PDOC ---
Discharge Summary General Date of Admission Jul 28, 2016 at 13:57 Date of Discharge [id number] Discharge Summary PROCEDURES PERFORMED DURING STAY: None. ADMITTING DIAGNOSES: 1. Intractable nausea and vomiting of 2. Pancreatitis 3. mild fe deficient anemia DISCHARGE DIAGNOSES: 1. Pancreatitis of unknown etiology, diagnosis and final labs pending, no evidence of Pre-Eclampsia 2. 34+6 weeks 3. mild anemia HOSPITAL COURSE: Mariposa is a 25y/o with SIUP at 34w6d who was admitted to [facility] on 07/28 for nausea/vomiting with discovery of elevated LFTS/Lipase. She had cholecystectomy in prior . RUQ ultrasound only revealed right hydronephrosis, common in . She underwent 2 epigastric ultrasounds which showed a nl appearing pancreas and liver, also a MRCP on 08/02 which showed no evidence of pancreatitis. Amylase/lipase/AST/ALT remain elevated despite clinical improvement. An OB ultrasound was also done with 40%ile growth and normal anatomy noted. Nausea/vomiting completely resolved x 5 days now, had slov[place] food yesterday that was well tolerated. Has occasional GERD, switched from protonix to pepcid on 08/02. Currently pain free. Denies VB/LOF. Feels good movement. On 07/31 , had TVUS that showed CL 2.5cm with U shaped funneling but her contractions resolved. NSTs have been reactive. Steroid complete. Discharged after the involvement over the last [address] Ordoñez GI, please see his notes. O: Vitals wnl and afebrile General: A&Ox3, NAD Cardiac: S1S2 present, no murmurs Lungs: CTAB Abdomen: Gravid, soft, no pain to palpation, no guarding/rebound Extremities: trace edema of BLE, no pain with palpation of calves NSTs reactive Labs: 08/04/16 CMP: 142/3.2/104/30/3/0.67/80 AST 136, ALT 266 amylase 264 lipase 2144 08/03/16 Nl coags, LDH 173, Uric acid nl, Urine Protein/Cr 0.22 08/01/16 CBC: 11.1/9/26.5/245 CMP: 143/3.5/108/22/4/0.63/82 AST 183, ALT 282, Alk phos 107 amylase 232 lipase 1283 07/28/16 Hepatitis A, B and C markers negative Urine toxicology screen negative Urine protein 1+ Pending: bile acids, HSV I/II, IgG4 panel, DEYSI, anti-mitochondrial ab, ceruloplasmin Radiology: MRCP 08/02/16 No evidence of biliary dilatation and no evidence of pancreatic duct dilatation. No evidence of choledocholithiasis. No evidence of pancreatitis by MRI. 07/29/16 RUQUS: The patient is status post cholecystectomy, common bile duct measures 3 mm in diameter. There is no intra or extrahepatic biliary dilatation. Liver and pancreas demonstrate no lesions. Pancreas was not visualized. The right kidney demonstrates moderate hydronephrosis which is unchanged from previous day's examination. Ultrasound also reveals a uterus. Plan: -Appreciate GI recommendations and Octiva will see Dr Ordoñez in the office this WED, hepatology may need to be involved pending labs above. -Continue routine antepartum care with antepartum testing to be set up twice weekly and induction at latest 39 weeks. DISCHARGE CONDITION: Stable TIME SPENT ON DISCHARGE: Greater than 15 minutes. Sessions MD Vital Signs/I&Os Vital Signs Date Time Temp Pulse Resp B/P (MAP) Pulse Ox O2 Delivery O2 Flow Rate FiO2 08/04/16 06:36 98.8 89 16 110/67 (81) 08/02/16 18:00 99 Room Air Laboratory Data Labs 24H Laboratory Tests 2 08/04/16 06:55: Prothrombin Time 12.9, Prothromb Time International Ratio 0.96, Anion Gap 8, Glomerular Filtration Rate > 60.0, Blood Urea Nitrogen 3L, Creatinine 0.67, Sodium Level 142, Potassium Level 3.2L, Chloride Level 104, Carbon Dioxide Level 30, Calcium Level 8.0L, Aspartate Amino Transf (AST/SGOT) 136H, Alanine Aminotransferase (ALT/SGPT) 266H, Alkaline Phosphatase 109, Total Bilirubin 0.6 , Total Protein 5.7L, Albumin 2.5L, Albumin/Globulin Ratio 0.78L, Amylase Level 264H, Lipase 2144H CBC/BMP Laboratory Tests 08/04/16 06:55 Calcium Level 8.0 L, Aspartate Amino Transf (AST/SGOT) 136 H, Alanine Aminotransferase (ALT/SGPT) 266 H, Alkaline Phosphatase 109, Total Bilirubin 0.6 , Total Protein 5.7 L, Albumin 2.5 L Microbiology Microbiology 07/28/16 Urine Culture - Final, Complete Discharge Medications Scheduled Ferrous Sulfate (Ferrous Sulfate) 325 Mg Tab, 325 MG PO DAILY, (Reported) Multivitamins/ ( 27-0.8 mg) 1 Tab Tab, 1 TAB PO DAILY, (Reported ) Pantoprazole Sodium Sesquihydr (Protonix) 40 Mg Tab, 40 MG PO DAILY, (Reported) Scheduled PRN Acetaminophen (Mapap) 500 Mg Tab, 650 MG PO Q4H PRN for PAIN OR FEVER, (Reported ) Ondansetron HCl (Zofran) 8 Mg Tab, 8 MG PO Q8H PRN for NAUSEA OR VOMITING, ( Reported) Allergies Coded Allergies: No Known Drug Allergy (Verified Allergy, Unknown, 05/28/16) JACK DIAZ MD Aug 04, 2016 11:19
[2016-08-04] MEDS ORDERED: TUMS500C PO (12:56)
[2016-08-04] MEDS ORDERED: RANI15TA PO (12:57)
--- NOTE | 2016-08-04 14:08 | IPN ---
DATE: 08/04/2016 Mariposa is doing very well. She is eating well. No further nausea. She has no abdominal pain. She remains afebrile. Her labs are unchanged from yesterday. I discussed the case with Dr. Myers yesterday and Dr. Ramires today. We all agree that both the patient and the baby are doing quite well clinically. PHYSICAL EXAMINATION: Vitals: Temperature 98.8, pulse is 89%, respiratory rate is 16, blood pressure 110/67. General: She is awake, alert, oriented times three, in no acute distress, nontoxic in appearance, comfortably in bed. Head, Eyes, Ears, Nose and Throat: Free of any abnormality. Chest is clear bilaterally. Heart is regular rate and rhythm, S1, S2. No murmurs or gallops. Abdomen is soft, nontender. No masses appreciated. The patient is . Extremities: Negative for edema. Skin examination is free of any rashes. Neurological examination is free of any focal deficit. Moves all extremities equally and bilaterally. Awake, alert and oriented times three. LABORATORY FINDINGS: Sodium 142, potassium 3.2, BUN is 3, creatinine 0.67, total bilirubin 0.6, AST 136, ALT 266, alkaline phosphatase is 109, albumin is 2.5, amylase 264, lipase is 2144. PT/INR is 0.96. Outstanding labs at this time still remain IgG4, DEYSI, antimitochondrial antibody, ceruloplasmin, and bile acids. IMPRESSION: 1. Nausea and vomiting which have completely resolved for the past three days. 2. Asymptomatic transaminitis. This is again asymptomatic from a clinical standpoint and unremarkable from a radiological standpoint. 3. Increased amylase and lipase. This also is asymptomatic from a clinical standpoint and no evidence of pancreatitis is seen on radiology. 4. Right-sided hydronephrosis as seen on ultrasound and MRI, unchanged and likely incidental 5. The patient is 35 weeks . DISCUSSION AND PLAN: While I am still awaiting some additional lab work that may possibly be pending for another one to two and possibly three days, the patient and baby continue to do very well from a clinical standpoint. She has not had any further nausea or vomiting for the past at least 48 hours and based on discussions with her OB doctors and based on her overall clinical progress, I think she will be okay to be discharged home with close followup on the lab work. I will see her in my office next week, probably Friday, for follow-up on the pending labs and the overall plan will be reformulated if necessary. At this time, we will follow her lab work closely throughout hopefully the rest of her and will see if her labs normalize after delivery. Certainly, if they continue to be elevated, further evaluation such as liver biopsy and/or ERCP will be considered. However, again at this time, the patient is clinically quite stable and is ready to be discharged with close followup monitoring.
[2016-08-05 14:12] LABS: SJOGREN'S ANTI SS-A >8.0 AI (0.0-0.9); SJOGREN'S ANTI SS-B <0.2 AI (0.0-0.9)
== END 2016-08-04 13:50 | disposition home or self-care (01) | DRG 781 ==
LOC: M ED 08:09 → M ED INP 13:57 → M OBS 17:30
PROVIDERS: ADMIT Student in an Organized Health Care Education/Training Program; ATTEND Student in an Organized Health Care Education/Training Program
DX: O26.613 Liver and biliary tract disorders in pregnancy, third trimester (principal); K85.90 Acute pancreatitis without necrosis or infection, unspecified; N13.30 Unspecified hydronephrosis; Z3A.34 34 weeks gestation of pregnancy; D64.9 Anemia, unspecified; O99.013 Anemia complicating pregnancy, third trimester

== ENCOUNTER → 2016-08-07 | Outpatient (CLI) | payer OTHER ==
[~2016-08-07] MED LIST changes: +FERR325T3 PO; +RANI15TA PO; +TUMS500C PO; +ZOFR8TAB PO
[2016-08-07 12:36] LABS: INR 1.02
[2016-08-07 12:55] LABS: ALBUMIN 2.6 GM/DL (3.2-5.2); ALBUMIN/GLOBULIN RATIO 0.84 (1.00-1.93); ALKALINE PHOSPHATASE 108 U/L (45-117); ALT/SGPT 130 U/L (12-78); AMYLASE 151 U/L (25-115); AST/SGOT 32 U/L (15-37); BILIRUBIN,DIRECT 0.3 MG/DL (0.0-0.2); BILIRUBIN,TOTAL 0.5 MG/DL (0.2-1.0); TOTAL PROTEIN 5.7 GM/DL (6.4-8.2)
== END ==
LOC: M LAB 11:01
PROVIDERS: ATTEND Internal Medicine Gastroenterology
DX: R74.8 Abnormal levels of other serum enzymes (principal)

== ENCOUNTER → 2016-08-14 | Outpatient (CLI) | payer OTHER ==
[2016-08-14 11:44] LABS: BASO % 0.1 % (0.0-1.0); EOS % 0.7 % (0.0-3.0); LARGE UNSTAINED CELL # 0.1 K/mm3 (0.0-0.4); LARGE UNSTAINED CELL % 1.1 % (0.0-4.0); LYMPH # 0.9 K/mm3 (1.5-6.5); LYMPH % 13.1 % (24.0-44.0); MEAN CORPUSCULAR HEMOGLOBIN 27.1 pg (27.0-33.0); MEAN CORPUSCULAR HGB CONC 32.8 g/dl (32.0-36.5); MEAN CORPUSCULAR VOLUME 82.5 fl (80.0-96.0); MONO # 0.2 K/mm3 (0.0-0.8); MONO % 2.5 % (0.0-5.0); NEUTROPHILS # 5.1 K/mm3 (1.8-7.7); NEUTROPHILS % 82.5 % (36.0-66.0); PLATELET COUNT, AUTOMATED 230 k/mm3 (150-450); RED CELL DISTRIBUTION WIDTH 14.9 % (11.5-14.5); WHITE BLOOD COUNT 6.2 K/mm3 (4.0-10.0)
[2016-08-14 12:02] LABS: INR 0.9
[2016-08-14 12:09] LABS: ALBUMIN 3.1 GM/DL (3.2-5.2); ALBUMIN/GLOBULIN RATIO 0.84 (1.00-1.93); BILIRUBIN,DIRECT 0.2 MG/DL (0.0-0.2); BILIRUBIN,TOTAL 0.4 MG/DL (0.2-1.0); TOTAL PROTEIN 6.8 GM/DL (6.4-8.2)
== END ==
LOC: M LAB 10:41
PROVIDERS: ATTEND Internal Medicine Gastroenterology
DX: N13.39 Other hydronephrosis (principal); R74.8 Abnormal levels of other serum enzymes; R11.2 Nausea with vomiting, unspecified

== ENCOUNTER 2016-08-18 10:23 | Outpatient (CLI) | payer OTHER ==
[2016-08-18] MEDS ORDERED: ONDANSETRON 4MG/2ML VIAL (J2405) As Ordered ONE (10:55)
[2016-08-18] MEDS ORDERED: LR 2,000 ML IV ONE (11:00)
[2016-08-18] MEDS ORDERED: ONDANSETRON 4MG/2ML VIAL (J2405) IV ONE (11:00)
[2016-08-18 11:31] LABS: MEAN CORPUSCULAR HEMOGLOBIN 27.3 pg (27.0-33.0); MEAN CORPUSCULAR HGB CONC 33.1 g/dl (32.0-36.5); MEAN CORPUSCULAR VOLUME 82.6 fl (80.0-96.0); RED CELL DISTRIBUTION WIDTH 14.8 % (11.5-14.5); WHITE BLOOD COUNT 8.8 K/mm3 (4.0-10.0)
[2016-08-18 11:52] LABS: ALBUMIN 3.3 GM/DL (3.2-5.2); ALKALINE PHOSPHATASE 152 U/L (45-117); ALT/SGPT 25 U/L (12-78); AMYLASE 77 U/L (25-115); ANION GAP 11 MEQ/L (8-16); AST/SGOT 23 U/L (15-37); BILIRUBIN,TOTAL 0.7 MG/DL (0.2-1.0); BLOOD UREA NITROGEN 4 MG/DL (7-18); CALCIUM LEVEL 8.6 MG/DL (8.5-10.1); CARBON DIOXIDE LEVEL 22 MEQ/L (21-32); CHLORIDE LEVEL 104 MEQ/L (98-107); CREATININE FOR GFR 0.73 MG/DL (0.55-1.02); GLOMERULAR FILTRATION RATE > 60.0 (>60); GLUCOSE, FASTING 66 MG/DL (70-105); POTASSIUM SERUM 4.3 MEQ/L (3.5-5.1); SODIUM LEVEL 137 MEQ/L (136-145); TOTAL PROTEIN 7.4 GM/DL (6.4-8.2)
[2016-08-18] MEDS ORDERED: FAMOTIDINE INJ 20MG/2ML VIAL (S0028) IVP ONE (12:15)
[2016-08-18] MEDS ORDERED: LR 1,000 ML IV SCH (13:00)
[2016-08-18] MEDS ORDERED: FAMOTIDINE IV BAG 20 MG in APPROPRIATE DILUENT 1 EA IV ONE (13:00)
[2016-08-18 13:32] VITALS: BP 120/81
== END 2016-08-18 13:45 | disposition home or self-care (01) ==
LOC: M LDO 10:23
PROVIDERS: ATTEND Obstetrics & Gynecology
DX: O99.89 Other specified diseases and conditions complicating pregnancy, childbirth and the puerperium (principal); Z3A.36 36 weeks gestation of pregnancy; O21.9 Vomiting of pregnancy, unspecified; O99.283 Endocrine, nutritional and metabolic diseases complicating pregnancy, third trimester
CPT/HCPCS: 59025; 80053; 82150; 83690; 85027; 96365; 96366; 96374; 96375; J2405

== ENCOUNTER 2016-08-19 23:27 | Outpatient (CLI) | payer OTHER ==
[~2016-08-19] VITALS: Ht 165.1 cm; Wt 75.0 kg
[2016-08-20 00:04] VITALS: BP 119/75
[2016-08-20 03:31] VITALS: BP 115/69
== END 2016-08-20 04:32 | disposition home or self-care (01) ==
LOC: M LDO 23:27
PROVIDERS: ATTEND Obstetrics & Gynecology
DX: O47.1 False labor at or after 37 completed weeks of gestation (principal); Z3A.37 37 weeks gestation of pregnancy

== ENCOUNTER → 2016-08-21 | Outpatient (CLI) | payer OTHER ==
[2016-08-21 12:18] LABS: BASO % 0.3 % (0.0-1.0); EOS % 0.7 % (0.0-3.0); LARGE UNSTAINED CELL # 0.1 K/mm3 (0.0-0.4); LARGE UNSTAINED CELL % 1.4 % (0.0-4.0); LYMPH # 0.8 K/mm3 (1.5-6.5); LYMPH % 10.6 % (24.0-44.0); MEAN CORPUSCULAR HEMOGLOBIN 26.7 pg (27.0-33.0); MEAN CORPUSCULAR VOLUME 83.5 fl (80.0-96.0); MONO # 0.2 K/mm3 (0.0-0.8); NEUTROPHILS # 6.6 K/mm3 (1.8-7.7); NEUTROPHILS % 84.1 % (36.0-66.0); PLATELET COUNT, AUTOMATED 210 k/mm3 (150-450); RED CELL DISTRIBUTION WIDTH 15.1 % (11.5-14.5); WHITE BLOOD COUNT 7.8 K/mm3 (4.0-10.0)
[2016-08-21 12:51] LABS: ALBUMIN 3.3 GM/DL (3.2-5.2); ALBUMIN/GLOBULIN RATIO 0.89 (1.00-1.93); BILIRUBIN,DIRECT 0.2 MG/DL (0.0-0.2); BILIRUBIN,TOTAL 0.5 MG/DL (0.2-1.0)
== END ==
LOC: M LAB 11:31
PROVIDERS: ATTEND Internal Medicine Gastroenterology
DX: R74.8 Abnormal levels of other serum enzymes (principal)

== ENCOUNTER → 2016-08-23 | Outpatient (CLI) | payer OTHER ==
--- NOTE | 2016-08-23 17:44 | REP ---
Clinical: well-being . Comparison: 07/28/2016 . Findings: Examination demonstrates a single live intrauterine in cephalic presentation. motion is identified by technologist. Placenta is noted posterolaterally towards the left side and grade II without evidence for placenta previa or abruption. Amniotic fluid volume is normal. Nuchal cord cannot be excluded. Gestational age by LMP 37 weeks 4 days with MARK 09/09/2016 . Gestational age by current measurements 36 weeks 4 days with MARK 09/16/2016 . FHR equals 160 beats per minute. BPD 9.0 cm 36 weeks 3 days HC 31.9 cm 36 weeks 0 days AC 32.5 cm 36 weeks 3 days FL 7.2 cm 36 weeks 6 days HL 6.4 cm 37 weeks 1 day HC/AC ratio 0.98 Estimated weight 2956 grams ( 38th percentile). Amniotic fluid index equals 7.9 cm (7.4 - 24.1). SD ratio equals 1.94 (1.60 - 2.60). Impression: Single live advanced gestation demonstrating appropriate interval growth. Estimated weight normal. Amniotic fluid index is lower limits of normal. Nuchal cord cannot be excluded. Signed by Crispin Mcdonnell MD 08/23/2016 05:35 P
== END ==
LOC: M RAD 16:38
PROVIDERS: ATTEND Obstetrics & Gynecology
DX: Z34.83 Encounter for supervision of other normal pregnancy, third trimester (principal)

== ENCOUNTER 2016-08-25 20:32 | Outpatient (CLI) | payer OTHER ==
[~2016-08-25] VITALS: Ht 152.4 cm; Wt 69.0 kg
[2016-08-25 20:48] VITALS: BP 130/77
[2016-08-25 21:40] LABS: MEAN CORPUSCULAR HEMOGLOBIN 27.1 pg (27.0-33.0); MEAN CORPUSCULAR HGB CONC 33.9 g/dl (32.0-36.5); MEAN CORPUSCULAR VOLUME 79.9 fl (80.0-96.0); RED CELL DISTRIBUTION WIDTH 15.5 % (11.5-14.5); WHITE BLOOD COUNT 9.7 K/mm3 (4.0-10.0)
[2016-08-25 21:53] VITALS: BP 119/77
[2016-08-25 22:03] LABS: ALBUMIN 3.3 GM/DL (3.2-5.2); ALBUMIN/GLOBULIN RATIO 0.85 (1.00-1.93); ALKALINE PHOSPHATASE 163 U/L (45-117); ALT/SGPT 30 U/L (12-78); AMYLASE 63 U/L (25-115); ANION GAP 14 MEQ/L (8-16); AST/SGOT 25 U/L (15-37); BILIRUBIN,TOTAL 0.7 MG/DL (0.2-1.0); BLOOD UREA NITROGEN 5 MG/DL (7-18); CALCIUM LEVEL 8.7 MG/DL (8.5-10.1); CARBON DIOXIDE LEVEL 20 MEQ/L (21-32); CHLORIDE LEVEL 102 MEQ/L (98-107); CREATININE FOR GFR 0.62 MG/DL (0.55-1.02); GLOMERULAR FILTRATION RATE > 60.0 (>60); GLUCOSE, FASTING 66 MG/DL (70-105); POTASSIUM SERUM 3.5 MEQ/L (3.5-5.1); SODIUM LEVEL 136 MEQ/L (136-145); TOTAL PROTEIN 7.2 GM/DL (6.4-8.2)
== END 2016-08-25 22:55 | disposition home or self-care (01) ==
LOC: M LDO 20:32
PROVIDERS: ATTEND Obstetrics & Gynecology
DX: O26.893 Other specified pregnancy related conditions, third trimester (principal); Z3A.37 37 weeks gestation of pregnancy; O21.9 Vomiting of pregnancy, unspecified; Z86.39 Personal history of other endocrine, nutritional and metabolic disease

== ENCOUNTER 2016-08-27 09:37 | Inpatient (IN) | payer OTHER ==
[~2016-08-27] VITALS: Ht 165.1 cm; Wt 74.0 kg
[2016-08-27] VITALS (12 sets, daily range): BP systolic 98–122; BP diastolic 55–79
[2016-08-27] MEDS: PRENATAL VITAMIN TAB PO SCH (09:00)
[2016-08-27] MEDS ORDERED: LACTATED RINGER'S 1000 ML IV ONE (10:45)
[2016-08-27] MEDS ORDERED: LR 1,000 ML IV SCH (10:45)
--- NOTE | 2016-08-27 11:04 | HPE ---
DATE OF ADMISSION: 08/27/2016 This lady is a 25-year-old 2, para 1, last menstrual period 12/11/2015, estimated date of confinement (EDC) 09/09/2016 at 38 and one weeks' of gestation with spontaneous rupture of membranes, clear liquor, ferning positive, Nitrazine positive, contractions are moderate. PAST HISTORY: She had a delivery at 36 weeks. She is sickle cell trait, is negative. Anemia. She had questionable pancreatitis. OBSTETRICAL PAST HISTORY: August 08, 2013 at 36 weeks, spontaneous vaginal delivery male, labor, 6 pounds 13 ounces. LABORATORY DATA: Labs show B+, HIV negative, hepatitis negative, RPR negative, rubella immune. Varicella immune. Pap normal. Urine negative. Gonorrhea and chlamydia negative. 1-hour glucose was 96, 1-hour 28 was 88. GBS is negative. Temperature is 99.1, blood pressure is 109/70, respirations are 16, pulse 87. Urine is not available. Distressed female. Symphysis fundus height is 38, vertex, posterior, 3 cm, 100 percent effaced, -1 station moderate amount of fluid coming out, clear, occiput transverse with gushes of fluid when edvin and in active labor. PLAN: Our plan is to hydrate her, epidural, anticipate spontaneous delivery. The rest of the examination is unremarkable. Category 1 strip. Normocephalic, atraumatic. Neck with full range of motion. Pupils equal and reactive to light. Chest is clear bilaterally to the bases. No wheezes or rhonchi. Distal pulses symmetric. No costovertebral angle tenderness. Symphysis fundus height is appropriate. Four quadrant bowel sounds are noted. No rashes, lesions or pruritus. No arthralgia, myalgia. No complaints of cough, wheezes, shortness of breath or dyspnea on exertion. No past chest pain. Not bleeding. Neuro complete. No incontinency, frequency. No nausea, vomiting, diarrhea or constipation. No diabetic issues. Gynecological history unremarkable. Past medical history unremarkable. Surgical history unremarkable. Family history is negative. is not sickle cell positive or trait, the patient is sickle cell trait. She does not smoke, drink, or abuse drugs. . There is no domestic violence. In summary, we have a 38 and 1 week of gestation who we are going to actively hydrate and have an epidural, anticipate delivery.
[2016-08-27] MEDS ORDERED: miSOPROStol 50 MCG 1/2 TAB (S0191) PV ONE (11:45)
[2016-08-27] MEDS ORDERED: BUTORPHANOL 2 MG/ML INJ (J0595) IV ONE (11:45)
[2016-08-27] MEDS ORDERED: PROMETHAZINE INJ 25 MG/ML VIAL (J2550) IM ONE (11:45)
[2016-08-27 12:37] LABS: MEAN CORPUSCULAR HEMOGLOBIN 26.7 pg (27.0-33.0); MEAN CORPUSCULAR VOLUME 80.7 fl (80.0-96.0); RED CELL DISTRIBUTION WIDTH 15.4 % (11.5-14.5); WHITE BLOOD COUNT 10.3 K/mm3 (4.0-10.0)
[2016-08-27] MEDS ORDERED: FENTANYL 2MCG/ML ROPIVACAINE 0.2% IN 0.9% NACL 200ML IVBAG As Ordered ONE (13:51)
[2016-08-27] MEDS ORDERED: OXYTOCIN DRIP 30 UNITS in APPROPRIATE DILUENT 1 EA IV SCH (15:00)
[2016-08-27] MEDS ORDERED: ePHEDrine SULFATE 25 MG/5 ML(5MG/ML) SYRINGE IV PRN (15:15)
[2016-08-27] MEDS ORDERED: diphenhydrAMINE INJ 50MG/ML VIAL (J1200) IV PRN (15:15)
[2016-08-27] MEDS ORDERED: REFRIGERATOR IV KEYS XX PRN (15:15)
[2016-08-27] MEDS ORDERED: FENTANYL/ROPIVACAINE/NACL BAG 200 ML EPIDURAL SCH (15:15)
[2016-08-27] MEDS ORDERED: ONDANSETRON 4MG/2ML VIAL (J2405) IV PRN (15:15)
[2016-08-27] MEDS ORDERED: EPIDURAL COMMENT XX SCH (15:15)
[2016-08-27] MEDS ORDERED: NALOXONE INJ 0.4 MG/1 ML VIAL (J2310) IV PRN (15:15)
[2016-08-27] MEDS ORDERED: EPIDURAL/PCA KEYS XX PRN (15:15)
[2016-08-27 16:52] LABS: CORD GAS ABE V -4.4; CORD GAS HCO3 V 18.6 MEQ/L; CORD GAS O2 SAT V 75.9 %; CORD GAS PCO2 V 28.4 mmHg; CORD GAS PH V 7.435 UNITS; CORD GAS PO2 V 32.6 mmHg; CORD GAS SBC V 20.4 MEQ/L; CORD GAS TCO2 V 19.5 MEQ/L
[2016-08-27 16:53] LABS: CORD GAS ABE A -4.2; CORD GAS HCO3 A 19.1 MEQ/L; CORD GAS PCO2 A 29.5 mmHg; CORD GAS PH A 7.429 UNITS; CORD GAS PO2 A 34.5 mmHg; CORD GAS SBC A 20.7 MEQ/L
[2016-08-27] MEDS ORDERED: METHYLERGONOVINE MALEATE 0.2 MG TAB PO PRN (17:30)
[2016-08-27] MEDS ORDERED: MOM 30ML SUSPENSION UDC PO PRN (17:30)
[2016-08-27] MEDS ORDERED: DOCUSATE SODIUM 100 MG CAP PO PRN (17:30)
[2016-08-27] MEDS ORDERED: ANUSOL HC CREAM 30GM TOP PRN (17:30)
[2016-08-27] MEDS ORDERED: MEASLES,MUMPS,RUBELLA VACCINE INJ (MMR-II) (90707) SC SCH (17:30)
[2016-08-27] MEDS ORDERED: RHOGAM 300 MCG (1500 IU) INJ (J2790) IM SCH (17:30)
[2016-08-27] MEDS ORDERED: ACETAMINOPHEN 500 MG TAB PO PRN (17:30)
[2016-08-27] MEDS ORDERED: DIBUCAINE 1% OINTMENT 30GM TOP PRN (17:30)
--- NOTE | 2016-08-27 18:05 | IPN ---
DATE: 08/27/2016 This lady and requested circumcision of their male . After discussing the risks and benefits of circumcision, the medical and nonmedical indications, the penile block, and aftercare, both expressed understanding of penile block and aftercare, signed and witnessed consent form. We await the medical clearance by the checkman.
[2016-08-27] MEDS: IBUPROFEN 800 MG TAB PO PRN (21:24)
[2016-08-28 06:03] VITALS: BP 105/58
[2016-08-28] MEDS: IBUPROFEN 800 MG TAB PO PRN ×2 (06:47→20:13)
[2016-08-28 07:17] LABS: MEAN CORPUSCULAR HEMOGLOBIN 27.1 pg (27.0-33.0); MEAN CORPUSCULAR HGB CONC 33.5 g/dl (32.0-36.5); MEAN CORPUSCULAR VOLUME 80.8 fl (80.0-96.0); RED CELL DISTRIBUTION WIDTH 15.6 % (11.5-14.5); WHITE BLOOD COUNT 11.1 K/mm3 (4.0-10.0)
[2016-08-28] MEDS ORDERED: OXYTOCIN INJ 10 UNITS/ML VIAL (J2590) IV ONE (08:45)
[2016-08-28] MEDS: PRENATAL VITAMIN TAB PO SCH (09:52)
--- NOTE | 2016-08-28 10:12 | DN ---
DATE OF DELIVERY: 08/27/2016 This lady is a 2, para 1 admitted at 38 and 3 weeks of gestation with spontaneous rupture of membranes, in active labor, with epidural in place, delivered over intact perineum a livebirth male weighing 6 pounds 9 ounces, 2900 grams. scores 9 and 9 at 1 and 5 minutes, respectfully. Cord around the neck times one loose. Arterial and venous pH was performed. Placenta delivered. Three-vessels. Membranes and tissues intact. Perineum, anterior, posterior, lateral manley were intact, as was the sphincter. Uterus contracted well under Pitocin. The patient and baby tolerating procedure well.
--- NOTE | 2016-08-28 12:43 | IPN ---
DATE: 08/28/2016 25-year-old 2 now para 2, had spontaneous rupture of membranes, in active labor at 38 and 1 weeks of gestation, spontaneous vaginal delivery of a male, 6 pounds 9 ounces, 2990 grams, scores of 9 and 9 at 1 and 5 minutes, respectively. Had the cord around the neck once. Her arterial pH was 7.42, base excess -4.2, venous pH 7.43, base excess -4.4. Admitting hemoglobin is 9.7, hematocrit 29.3 and platelets are 229. day #1 hemoglobin is pending. We discussed phlebitis, cystitis, mastitis, endometritis and cellulitis, diet, exercise pain management, perineal, breast and wound care. She has had a previous history of pancreatitis, anemia and she has sickle cell trait. Medications at discharge will be given. Counseling regarding breast feeding and patient is planning on using Nexplanon as a method of control. In summary, we have a 38+ weeks of gestation, delivered. No issues.
[2016-08-28 17:35] VITALS: BP 110/71
[2016-08-28] MEDS ORDERED: raNITIdine SYRUP 150 MG/10 ML UDC PO SCH (21:00)
[2016-08-29] MEDS ORDERED: FAMOTIDINE 20 MG TAB PO SCH
[2016-08-29 05:34] VITALS: BP 109/67
--- NOTE | 2016-08-29 06:11 | IPNPDOC ---
Text Note Date of Service The patient was seen on 08/29/16. NOTE PPD2 prog note States feeling well, no complaints. No heavy VB. Pain controlled. Voiding, ambulatory. Bonding well and brst feeding. VSSAF CTAB RRR Ut at U-2, firm Ext no CCE a/p: Doing well. Likely d/c today Sessions VS,Tammy, I+O VS, Tammy, I+O Laboratory Tests 08/28/16 06:36 Red Blood Count 3.51 L, Mean Corpuscular Volume 80.8, Mean Corpuscular Hemoglobin 27.1, Mean Corpuscular Hemoglobin Concent 33.5, Red Cell Distribution Width 15.6 H Vital Signs Date Time Temp Pulse Resp B/P (MAP) Pulse Ox O2 Delivery O2 Flow Rate FiO2 08/29/16 05:34 97.7 65 18 109/67 (81) 08/27/16 18:51 100 SESSIONS,JACK Bautista MD August 29, 2016 06:11
--- NOTE | 2016-08-29 06:17 | DS.PDOC ---
Discharge Summary General Date of Admission August 27, 2016 at 09:37 Date of Discharge [id number] Discharge Summary PROCEDURES PERFORMED DURING STAY: spontaneous vaginal delivery after spontaneous ruptured membranes ADMITTING DIAGNOSES: SROM, labor DISCHARGE DIAGNOSES: 1. Healthy male infant HOSPITAL COURSE: Admitted with SROM. Uncomplicated labor and delivery. See delivery note. DISCHARGE MEDICATIONS: Motrin, Dibucaine, Colace, Tylenol, Lanolin, desires eventual Nexplanon. Physical exam: see note from this morning LABORATORY DATA: Please see below. ACTIVITY: as tolerated. Nothing in vagina for 6 weeks. DIET: regular DISPOSITION:stable TIME SPENT ON DISCHARGE: Greater than 15 minutes. Sessions Vital Signs/I&Os Vital Signs Date Time Temp Pulse Resp B/P (MAP) Pulse Ox O2 Delivery O2 Flow Rate FiO2 08/29/16 05:34 97.7 65 18 109/67 (81) 08/27/16 18:51 100 Laboratory Data CBC/BMP Laboratory Tests 08/28/16 06:36 Red Blood Count 3.51 L, Mean Corpuscular Volume 80.8, Mean Corpuscular Hemoglobin 27.1, Mean Corpuscular Hemoglobin Concent 33.5, Red Cell Distribution Width 15.6 H Discharge Medications Scheduled Ferrous Sulfate (Ferrous Sulfate) 325 Mg Tab, 325 MG PO DAILY, (Reported) Multivitamins/ ( 27-0.8 mg) 1 Tab Tab, 1 TAB PO DAILY, (Reported ) Ranitidine Hcl (Zantac) 150 Mg Tab, 1 TAB PO BID, (Reported) Scheduled PRN Acetaminophen (Mapap) 500 Mg Tab, 650 MG PO Q4H PRN for PAIN OR FEVER, (Reported ) Calcium Carbonate (Tums) 500 Mg Chw, 1,000 MG PO Q4HP PRN for HEARTBURN/ INDIGESTION, (Reported) Allergies Coded Allergies: No Known Drug Allergy (Verified Allergy, Unknown, 05/28/16) SESSIONSJACK MD August 29, 2016 06:17
[2016-08-29] MEDS: PRENATAL VITAMIN TAB PO SCH (07:50)
[2016-08-29] MEDS ORDERED: IBUP-1114 PO (10:35)
[2016-08-29] MEDS ORDERED: DIBU1OI TOP (10:35)
[2016-08-29] MEDS ORDERED: ACET50TA PO (10:35)
[2016-08-29] MEDS ORDERED: COLA100C3 PO (10:35)
== END 2016-08-29 11:05 | disposition home or self-care (01) | DRG 775 ==
LOC: M LDI 09:37 → M OBS 18:49
PROVIDERS: ADMIT Obstetrics & Gynecology; ATTEND Obstetrics & Gynecology
PROC: 10E0XZZ Delivery of Products of Conception, External Approach (ICD-10-PCS; principal; 2016-08-27)
DX: O99.02 Anemia complicating childbirth (principal); Z37.0 Single live birth; Z3A.38 38 weeks gestation of pregnancy; D57.3 Sickle-cell trait; O69.82X0 Labor and delivery complicated by other cord entanglement, without compression, not applicable or unspecified; Z87.51 Personal history of pre-term labor

== ENCOUNTER → 2016-11-27 | Outpatient (CLI) | payer OTHER ==
[~2016-11-27] MED LIST changes: +ACET1TAB17 PO; +COLA100C5 PO; +DIBU10OI TOP; +IBUP-1114 PO; +NEXP1IMP SC; -ONDA1TAB15 PO; +ONDA4TAB5 PO
[2016-11-27 15:53] LABS: ALBUMIN 4.2 GM/DL (3.2-5.2); ALBUMIN/GLOBULIN RATIO 1.2 (1.00-1.93); BILIRUBIN,DIRECT 0.1 MG/DL (0.0-0.2); BILIRUBIN,TOTAL 0.3 MG/DL (0.2-1.0); TOTAL PROTEIN 7.7 GM/DL (6.4-8.2)
== END ==
LOC: M LAB 14:45
PROVIDERS: ATTEND Internal Medicine Gastroenterology
DX: R74.8 Abnormal levels of other serum enzymes (principal)

== ENCOUNTER 2016-12-24 14:01 | Outpatient (CLI) | payer OTHER ==
[~2016-12-24] VITALS: Ht 165.1 cm; Wt 72.1 kg
[~2016-12-24 14:01] MED LIST changes: -ACET1TAB17 PO
[2016-12-24] MEDS ORDERED: NS 1,000 ML IV SCH (14:15)
[2016-12-24] MEDS ORDERED: ACET1TAB17 PO (14:25)
[2016-12-24] MEDS ORDERED: LIDOCAINE 2% INJ 100 MG/5 ML SDV (FOR ANES.) As Ordered ONE (14:45)
[2016-12-24] MEDS ORDERED: PROPOFOL 200 MG/20 ML VIAL As Ordered ONE (14:45)
--- NOTE | 2016-12-24 15:02 | ROOR ---
Patient Name: Mariposa Browne Procedure Date: 12/24/2016 2:44 PM Date of : 1990 Age: 26 Room: [facility] Gender: Female Note Status: Finalized Procedure: Upper GI endoscopy Indications: Epigastric abdominal pain, Heartburn Providers: Ty SEPULVEDA MD Referring MD: GERA BOSS MD Requesting Provider: Medicines: Monitored Anesthesia Care Complications: No immediate complications. Procedure: Pre-Anesthesia Assessment: - The heart rate, respiratory rate, oxygen saturations, blood pressure, adequacy of pulmonary ventilation, and response to care were monitored throughout the procedure. The Endoscope was introduced through the mouth, and advanced to the second part of duodenum. The upper GI endoscopy was accomplished without difficulty. The patient tolerated the procedure well. Findings: Mildly severe esophagitis was found at the gastroesophageal junction. Biopsies were taken with a cold forceps for histology. Small Hiatal Hernia. The entire examined stomach was normal. Biopsies were taken with a cold forceps for Helicobacter pylori testing. The examined duodenum was normal. Impression: - Mild reflux esophagitis. Biopsied. - Small Hiatal Hernia. - Normal stomach. Biopsied. - Normal examined duodenum. Recommendation: - Discontinue Zantac (ranitidine). - Use Pepcid (famotidine) 20 mg twice a day. - (the script was sent to your pharmacy on file) - Telephone endoscopist for pathology results in 2 weeks. Ty Sepulveda MD Ty SEPULVEDA MD 12/24/2016 3:02:12 PM This report has been signed electronically. Number of Addenda: 0 Note Initiated On: 12/24/2016 2:44 PM Estimated Blood Loss: Estimated blood loss: none.
[2016-12-24 15:25] VITALS: BP 149/85
== END 2016-12-24 15:28 | disposition home or self-care (01) ==
LOC: M OPP 14:01
PROVIDERS: ATTEND Internal Medicine Gastroenterology
DX: R10.13 Epigastric pain (principal); R12 Heartburn; K21.0 Gastro-esophageal reflux disease with esophagitis; K44.9 Diaphragmatic hernia without obstruction or gangrene; R06.83 Snoring; Z88.8 Allergy status to other drugs, medicaments and biological substances; Z79.899 Other long term (current) drug therapy